=== PATIENT | female | born 1940 | race Caucasian/White ===

== ENCOUNTER 2016-06-12 18:26 | Inpatient (IN) ==
[2016-06-12] MEDS ORDERED: *HR* Dextrose 50 % in Water (Syg) 50 ML SYRINGE IVP PRN (20:51)
[2016-06-12] MEDS ORDERED: Naloxone 0.4 MG/ML INJ IVP PRN ×2 (20:51)
[2016-06-12] MEDS ORDERED: Insulin Regular, Human 100 UNIT/ML IV ONE (20:51)
[2016-06-12] MEDS ORDERED: Insulin Regular, Human 100 UNIT/ML IV PRN ×2 (20:51)
[2016-06-12] MEDS ORDERED: Ondansetron 4 MG/2 ML VIAL IVP PRN (21:01)
[2016-06-12] MEDS ORDERED: D5% in 0.45% NACL 1,000 ML IVC PRN (21:01)
[2016-06-12] MEDS ORDERED: Acetaminophen 325 MG TABLET PO PRN ×2 (21:01)
[2016-06-12] MEDS ORDERED: D5% in 0.45% NACL w KCl 20 MEQ/1,000 ML MLS IVC PRN (21:01)
[2016-06-12] MEDS ORDERED: *HR* OxyCODONE Immed Rel 5 MG TABLET PO PRN (21:01)
[2016-06-12] MEDS ORDERED: Pantoprazole 40 MG VIAL IVPB STA (21:01)
[2016-06-12] MEDS ORDERED: Acetaminophen 650 MG RECTAL SUPP RC PRN (21:01)
[2016-06-12] MEDS ORDERED: Insulin Human Regular 100 UNIT in 0.9 % Sodium Chloride 100 ML IVC SCH (21:15)
--- NOTE | 2016-06-12 21:48 | Internal Med History&Physical ---
Date of Encounter: 06/12/16 Time of Encounter: 21:00 Assessment and Plan (1) Toxic metabolic encephalopathy Current visit: Yes Status: Acute . (2) Delirium due to conditions classified elsewhere Current visit: Yes Status: Acute . (3) S/P percutaneous endoscopic gastrostomy (PEG) tube placement Current visit: Yes Status: Chronic . (4) Irritation around percutaneous endoscopic gastrostomy (PEG) tube site Current visit: Yes Status: Acute . (5) Candidal intertrigo Current visit: Yes Status: Acute . (6) Dementia arising in the senium and presenium Current visit: Yes Status: Chronic . (7) Systemic inflammatory response syndrome (SIRS) associated with organ dysfunction Current visit: Yes Status: Acute . (8) Sepsis Current visit: Yes Status: Acute . Qualifiers: Sepsis type: sepsis due to unspecified organism Qualified Code(s): A41.9 - Sepsis, unspecified organism (9) Accelerated hypertension Current visit: Yes Status: Acute . (10) Healthcare-associated pneumonia Current visit: Yes Status: Acute . (11) Acute on chronic respiratory failure with hypoxia and hypercapnia Current visit: Yes Status: Acute . (12) Hyperosmolar non-ketotic state in patient with type 2 diabetes mellitus Current visit: Yes Status: Acute . (13) Uncontrolled diabetes mellitus Current visit: Yes Status: Chronic . Qualifiers: Diabetes mellitus type: type 2 Diabetes mellitus complication status: with unspecified complications Diabetes mellitus continuous churn buttermaker insulin use: unspecified continuous churn buttermaker insulin use status Qualified Code(s): E11.8 - Type 2 diabetes mellitus with unspecified complications; E11.65 - Type 2 diabetes mellitus with hyperglycemia (14) Acute kidney injury superimposed on CKD Current visit: Yes Status: Acute . (15) Status post epidural steroid injection Current visit: Yes Status: Acute . (16) Demand ischemia of myocardium Current visit: Yes Status: Acute . (17) Ischemia due to increased oxygen demand Current visit: Yes Status: Acute . (18) Elevated troponin I measurement Current visit: Yes Status: Acute . (19) Non-ST elevation myocardial infarction (NSTEMI) due to mismatch of myocardial oxygen supply and demand Current visit: Yes Status: Acute . (20) Hypoalbuminemia due to protein-calorie malnutrition Current visit: Yes Status: Chronic . (21) CAD (coronary artery disease), [place] coronary artery Current visit: Yes Status: Chronic . Qualifiers: [place] vs. transplanted heart: [place] heart Associated angina: angina presence unspecified Qualified Code(s): I25.10 - Atherosclerotic heart disease of [place] coronary artery without angina pectoris (22) History of coronary artery bypass graft Current visit: Yes Status: Chronic . (23) History of CVA with residual deficit Current visit: Yes Status: Chronic . (24) Complete immobility due to severe physical disability or frailty Current visit: Yes Status: Chronic . (25) COPD (chronic obstructive pulmonary disease) Current visit: Yes Status: Chronic . Qualifiers: COPD type: unspecified COPD Qualified Code(s): J44.9 - Chronic obstructive pulmonary disease, unspecified (26) Hypertension Current visit: Yes Status: Chronic . Qualifiers: Hypertension type: essential hypertension Qualified Code(s): I10 - Essential (primary) hypertension (27) Dyslipidemia Current visit: Yes Status: Chronic . (28) Chronic pain associated with significant psychosocial dysfunction Current visit: Yes Status: Chronic . (29) Chronic back pain Current visit: Yes Status: Chronic . Qualifiers: Back pain location: low back pain Back pain laterality: unspecified Sciatica presence: unspecified whether sciatica present Qualified Code(s): M54.5 - Low back pain; G89.29 - Other chronic pain (30) Anxiety and depression Current visit: Yes Status: Chronic . (31) At risk for adverse drug event Current visit: Yes Status: Chronic . (32) At risk for activity intolerance Current visit: Yes Status: Chronic . (33) Bed confinement status Current visit: Yes Status: Chronic . (34) Macrocytic anemia Current visit: Yes Status: Chronic . (35) Pleural effusion Current visit: Yes Status: Chronic . (36) UTI (urinary tract infection) Current visit: Yes Status: Acute . Qualifiers: Urinary tract infection type: site unspecified Hematuria presence: without hematuria Qualified Code(s): N39.0 - Urinary tract infection, site not specified (37) CKD (chronic kidney disease) stage 3, GFR 30-59 ml/min Current visit: Yes Status: Chronic . (38) DM type 2 (diabetes mellitus, type 2) Current visit: Yes Status: Chronic .. Qualifiers: Diabetes mellitus complication status: with unspecified complications Diabetes mellitus continuous churn buttermaker insulin use: unspecified continuous churn buttermaker insulin use status Qualified Code(s): E11.8 - Type 2 diabetes mellitus with unspecified complications (39) Failed back surgical syndrome Current visit: Yes Status: Chronic . (40) Lumbar radicular syndrome Current visit: Yes Status: Chronic . (41) Age-related physical debility Current visit: Yes Status: Chronic . Internal Medicine - H&P: HPI Chief complaint: Altered mental status Admitted From: Emergency Dept Plans for Post Hospital Care: Transfer Shelter Facility History of present illness: Ms. 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 The patient was visited and interviewed and examined. Patient was found to be encephalopathic. Delirious. Inattentive. Acutely ill. Nonverbal/ non- historian of circumstances and events. The patient is admitted to [facility] as a hospital transfer from [facility] emergency department where she presented via EMS services for fpc reports of increased confusion associated with abdominal pain and pneumonia. Patient was reported to have had a high fever associated with mental status changes approximate 4 days prior to presentation. She was diagnosed in the fpc is having a pneumonia and initiated on antibiotics. However condition did not improve. Due to decreased responsiveness and increasing discomfort patient was transferred for further evaluation. Prior to her decline in alertness the patient was complaining of pain severity at a 10/10 progressively worsening associated with generalized weakness and fever.Findings in the ED: Temperature 101.7 pulse 117-121 respiration 20 BP 150-187/90-98 O2 saturation 92% on 2 L per nasal cannula. WBC 12.5 hemoglobin 10.4 platelets 346,000. MCV 105.2 MCHC 30. The differential showed increase in neutrophils. Arterial blood gas showed a pH of 7.46 PCO2 48 PO2 61 HCO3 34.8 O2 saturation 92%. Liters per nasal cannula. Lactic acid 1.3. PT 14.1 INR 1.3 PTT 28.1. Metabolic panel showed a sodium of 149 potassium 4.6 carbon dioxide 32 BUN 45, creatinine 1.52 GFR 33. Glucose 755 osmolality 356. Albumin 2.6 total protein 8. Troponin 0.15. BNP 2328. Beta hydroxybutyric acid greater than 0.27. Portable chest x-ray demonstrated moderate to large right pleural effusion. Extensive right lower lobe and right middle lobe consolidation and atelectasis. No pneumothorax. Left lung clear. Heart size normal. Sternotomy wires apparent. CT head without contrast demonstrated no evidence for obvious acute infarct or hemorrhage. Diffuse atrophy. Focal encephalomalacia seen in the posterior left frontal lobe. This is compatible with remote infarct. Periventricular hypodensities likely due to small vessel ischemic change. No evidence of mass or midline shift or extra- axial fluid collection. Paranasal sinuses and mastoid air cells benign except for trace fluid in the ethmoids and sphenoid on the right. No bone or soft tissue abnormality seen. CT of the chest without contrast demonstrated increased right-sided pleural effusion with increased lung collapse and consolidation on the right. Secretion seen in right lower lobe airways likely mucous plugging. Hazy groundglass opacities throughout the lung on the left likely post inflammatory or infectious. Surgical changes seen in the stomach with G-tube present. Spurring seen in the spine. Post-fusion changes noted in the cervical spine. All mediastinal nodes noted. Calcified granuloma seen within the liver. EKG demonstrated sinus tachycardia at 116 with no acute ischemic changes. Preliminary impression suggests acute on chronic hypoxic hypercapnic respiratory failure in the setting of healthcare associated pneumonia and expanding parapneumonic effusion with compressive atelectasis. Patient is acutely septic. SIRS criteria and sepsis criteria met at the time of admission. Hyperosmolar nonketotic hyperglycemia is evident with alteration in mental status/responsiveness/semi-coma. Osmolar state is significant with associated hypernatremia. Acute on chronic kidney injury stage III with evidence significant dehydration associated with presentation. Screening studies also demonstrated significant hypoalbuminemia pointing to underlying severe chronic protein caloric malnutrition. Demand ischemia with troponin elevation as well as elevation in BNP consistent with the degree of flash pulmonary edema but also noting underlying CMP and BAHRAT/CKD. The patient presents at increased risk for further acute clinical decline and morbidity given her advanced age, frailty, clinical findings and comorbidities in the setting of evolving multiorgan failure. Workup and treatment progress comprehensibly. Cumulative laboratory and radiographic data base was reviewed, considered and discussed. Pertinent ancillary medical records including ECW and PCI documentation, when available was reviewed and considered. Given the patient's presenting concerns, past medical history, clinical findings and symptoms, she is admitted at this time will undergo further evaluation and disposition. Orders were written as per the computerized physician security orderly system.......................................................................... .................... Consultative opinion and will be sought as clinical circumstances justify. Pain management needs will be addressed. Laboratory and radiographic data base will be updated as appropriate. Studies include: Cultures of blood and urine and sputum, CPK, cardiac injury panel, BNP , beta-hydroxybutyric acid, metabolic and hematologic panel, magnesium, phosphorus, ionized calcium, thyroid panel, lipid profile, A1c, C-peptide, CRP, sedimentation rate, respiratory infection profile, respiratory virus panel, blood gas, lactic acid, UA, PT, APTT, Ddimer, fibrinogen, amylase, lipase, b12, iron studies, folate, serologies, etc. Precautions: Aspiration, fall, seizure, delirium protocol/surveillance initiated. Telemetry with continuous hemodynamic monitoring and pulse oximetry initiated. Orthostatic vital signs. Empiric antibody coverage: Intravenous vancomycin, Zosyn and Levaquin pending culture data. Special studies: CT chest, CT head/brain, chest x-ray, telemetry, EKG, echocardiogram, ultrasound retroperitoneum, bladder scan, postvoid.. Pulmonary toilet: Incentive spirometry, aerosol bronchodilator, mucolytic, antitussive, supplemental oxygen. Corticosteroid therapy. CPAP/BiPAP supplemental oxygen delivery. Aerosol Mucomyst therapy. Fluid and electrolyte repletion efforts will proceed. Careful attention to fluid balance and renal recovery will be emphasized. Avoidance of nephrotoxic exposure and adverse drug drug interaction in the setting of impaired renal function will be monitored closely. Correction of metabolic and acid-base deficits will be emphasized. Acute coronary syndrome protocol/surveillance initiated. Acute CUT PLUG PACKER injury protocol/surveillance initiated. DVT and PUD prophylaxis initiated: PPI therapy, intermittent pneumatic cuffs. Subcutaneous heparin/Lovenox. Early ambulation will be encouraged. Immunization updates recommended. Influenza and pneumococcal vaccinations as part of ongoing preventative healthcare recommendations strongly recommended. Smoking cessation counseling will be briefly addressed when circumstances permit. Advanced care directive discussion to be addressed when circumstances permit. Patient hospital to hospital transfer records and [place] records reviewed. Healthcare restrictions noted at this time. Cardiovascular risk appraisal and cardiovascular risk reduction efforts will be emphasized. Physical and occupational therapy counseled to evaluate/assess patient's functional capacity and progress mobility when clinical circumstances permit. DKA/HHS protocols/surveillance initiated. Insulin drip therapy to transition into sliding scale/basal/nutritional insulin coverage when clinical circumstances permit. Patient is PEG tube dependent. Tube feeding assignment /ADA dietary restraint as per nutrition/dietary consultation recommendations. Scheduled and as-needed basis fingerstick glucose assessments were initiated. Nutrition/diabetes education/dietary consultation requested.. Outpatient medication schedules will be reviewed, confirmed and facilitated as appropriate. Reconciliation of home treatments including adjustments, substitutions and reintroduction into the treatment regimen will address necessary maintenance therapies for chronic pre-existing medical conditions. Plan of care has been reviewed and discussed in detail with the patient's. Questions addressed. Hospital course will be dependent upon collective clinical findings, treatment response and potential consultative interventions. Patient is at increased risk for further acute clinical decline and morbidity due to advanced age, frailty, presenting chief complaints, findings and comorbidities in the setting of evolving multiorgan derangements.. Condition is serious. Status is critical. Prognosis is guarded. CODE STATUS is DNR-comfort care arrest Past Med Surg Social Fam HX - Past Medical History Source: old records reviewed Medical history: arthritis, asthma, CHF, COPD, coronary artery disease, CVA, diabetes, GERD, hyperlipidemia, hypertension, osteoporosis, renal disease, seizures, thyroid disease, other Psychiatric history: anxiety, depression - Past Surgical History Surgical History: cholecystectomy, colectomy (Colonic resection.), coronary bypass (CABG), hysterectomy, orthopedic, other (Interbody fusion at L4-L5 posterior lumbar. Cervical spine disc colectomy. Lumbar disks activity.), RAHEEM/ BSO, other (Tubal ligation. Tonsillectomy adenoidectomy. Upper and lower teeth extractions.), pacemaker - Social History Smoking Status: Unknown if ever smoked Smokeless Tobacco Status: No Alcohol use: none Drug use: none Occupational status: disabled Current living situation: ECF Activity Level: Wheelchair bound, Bed bound Recent Out of Country Travel Within the Last 8 Weeks: No Exposure or Possible Exposure to Illness During Travel: No Internal Medicine - H&P: Meds Albuterol Sulfate [Ventolin Hfa] 1 puff IH Q6H 01/26/16 [History] Ergocalciferol (VITAMIN D2) [Vitamin D2] 50,000 unit PO QWEEK #0 01/26/16 [ History] Gabapentin 250 mg GTUBE BID 01/26/16 [History] Insulin Glargine,Hum.rec.anlog [Lantus Solostar] 10 unit SQ DAILY 01/26/16 [ History] Labetalol HCl 200 mg GTUBE BID 01/26/16 [History] Losartan Potassium [Cozaar] 50 mg GTUBE DAILY 01/26/16 [History] Nortriptyline HCl 10 mg GTUBE HS 01/26/16 [History] Ondansetron Oral Soln [Zofran Oral Soln] 4 mg GTUBE TID 01/26/16 [History] Polyethylene Glycol 3350 [MiraLAX] 17 gm GTUBE DAILY 01/26/16 [History] Potassium Chloride Elixir [Potassium Chloride] 10 meq GTUBE DAILY 01/26/16 [ History] Furosemide [Lasix] 20 mg PO Q48H 365 Days 01/29/16 [Rx] Albuterol Sulfate [Ventolin Hfa] 18 gm IH Q6H PRN 06/12/16 [History] Mv-Mn/FA/Coq10/Lycopene/Lutein [Theragran-M Premier 50+ Caplet] 5 ml GTUBE QAM 06/12/16 [History] Allergies No Known Allergies Allergy (Verified 05/21/16 23:37) ROS unobtainable: due to mental status All Systems PM: A 10-system review of systems was performed and is negative for pertinent findings except as documented above in the HPI. Patient presents acutely confused and assisted with the encephalopathy and associated delirium. Dysarthric. Inattentive. Unable to comply with requests. She is a non- historian of circumstances and events. Details are collected from cumulative records, EMS triage information and fpc. - Constitutional Constitutional: as per HPI - EENT Eyes: as per HPI Ears: as per HPI Nose, mouth and throat: as per HPI - Breasts Breasts: as per HPI - Cardiovascular Cardiovascular ROS IM: as per HPI - Respiratory Respiratory: as per HPI - Gastrointestinal Gastrointestinal: as per HPI - Genitourinary Genitourinary: as per HPI Menstruation: as per HPI - Musculoskeletal Musculoskeletal ROS IM: as per HPI - Integumentary Integumentary IM: as per HPI - Neurological Neurological ROS: as per HPI - Psychiatric Psychiatric: as per HPI - Endocrine Endocrine IM: as per HPI - Hematologic/Lymphatic Hematologic/Lymphatic: as per HPI - Allergic/Immunologic Allergic/Immunologic: as per HPI - Constitutional Vitals: Temp Pulse Resp BP Pulse Ox 99.9 F H 122 24 175/102 94 L 06/12/16 20:32 06/12/16 20:32 06/12/16 20:32 06/12/16 20:32 06/12/16 20:32 General appearance: Present: cachectic, A&O X 1, disheveled, severe distress, underweight. Absent: answers questions appropriately - Head Head exam: Present: atraumatic, normocephalic - Eye Eye exam: Present: EOMI, PERRL, conjuntiva pink, sclera anicteric Pupils: Present: normal accommodation, PERRL - ENT ENT exam: Present: mucous membranes dry, normal external ear exam, normal oropharynx - Neck Neck exam general surgery: Present: full ROM, supple, trachea midline. Absent: lymphadenopathy, tenderness, nuchal rigidity - Respiratory Respiratory exam: Present: chest wall tenderness, decreased breath sounds, CTAB. Absent: accessory muscle use, rales, rhonchi, stridor, wheezes - Cardiovascular Cardiovascular exam: Present: distant heart sounds, RRR, +S1, +S2, tachycardia. Absent: diastolic murmur, gallop, rubs, systolic murmur - GI/Abdominal GI/Abdominal exam: Present: diminished bowel sounds, soft, tenderness, no peritoneal signs. Absent: distended, guarding, rebound, rigid - Extremities Exam Extremities exam: Present: warm, radial pulses palpable and symetrical. Absent : calf tenderness, cyanotic, pedal edema - Neurological Exam Neurological exam: Present: alert, altered, CN II-XII intact, motor sensory deficit. Absent: strengths equal and symetr throughout, pronater drift, facial droop, speech deficit - Expanded Neurological Exam Neurological exam expanded: Present: ataxia, inattentive, protecting the airway. Absent: expressive aphasia, receptive aphasia Patient oriented to: Present: person. Absent: place, time Speech: Present: garbled Coma Scale Eye Opening: Spontaneous Coma Scale Motor Response: Withdraws to Pain Coma Scale Verbal Response: Incomprehensible Coma Scale Total: 10 - Psychiatric Psychiatric exam: Present: agitated, anxious - Expanded Psychiatric Exam Focused psych exam: Present: restlessness - Skin Skin exam: Present: dry, intact, rash, warm. Absent: petechiae, urticaria, vesicles Internal Med - H&P Results - Labs CBC & Chem 7: 06/15/16 00:57 06/15/16 00:57 - Impressions Vital Signs Temp Pulse Resp BP Pulse Ox 06/12/16 20:32 99.9 F H 122 24 175/102 94 L Intake and Output 06/12/16 06/12/16 06/12/16 07:59 15:59 23:59 Intake Total 0 / 0 Output Total 500 / 500 Balance -500 / -500 Intake: Oral 0 / 0 Output: Catheter 500 / 500 Other: Stool Size Smear Stool Color Yellow Weight 65.5 kg Blood Glucose* 589 Patient Weight 06/12/16 23:59 Weight 65.5 kg Allergies Allergy/AdvReac Type Severity Reaction Status Date / Time No Known Allergies Allergy Verified 05/21/16 23:37 Abnormal lab results RBC 2.43 M/mcL (3.82-4.97) L 06/15/16 00:57 Hgb 7.5 g/dL (11.5-15.4) L 06/15/16 00:57 Hct 25.8 % (35.3-44.9) L 06/15/16 00:57 MCV 106.2 fL (83.0-100.0) H 06/15/16 00:57 MCHC 29.1 g/dL (31.6-35.5) L 06/15/16 00:57 VBG pH 7.44 pH Units (7.32-7.42) H 06/13/16 09:22 VBG pO2 175 mmHg (25-40) H 06/13/16 09:22 VBG HCO3 34.6 mEq/L (21-27) H 06/13/16 09:22 BUN 28 mg/dL (7-20) H D 06/15/16 00:57 Est GFR (Non-Af Amer) 55 (> 60) L 06/15/16 00:57 BUN/Creatinine Ratio 29 (6-26) H 06/15/16 00:57 Glucose 314 mg/dL (70-99) H 06/15/16 00:57 POC Glucose 316 (58-89) H 06/15/16 00:41 Hemoglobin A1c 7.8 % (-5.6) H 06/12/16 22:34 Serum Osmolality 335 mOsm/kg (280-300) H 06/13/16 04:00 Calculated Osmolality 317 (280-300) H 06/15/16 00:57 Calcium 8.2 mg/dL (8.6-10.8) L 06/15/16 00:57 Iron 28 mcg/dL (50-170) L 06/15/16 00:57 Transferrin 98 mg/dL (180-382) L 06/15/16 00:57 Ferritin 294 ng/ml (5-204) H 06/15/16 00:57 Lactate Dehydrogenase 144 Units/L (159-327) L 06/14/16 14:36 Troponin I 0.29 ng/mL (0-0.03) H* 06/14/16 14:36 B-Natriuretic Peptide 2579 pg/mL (0-100) H 06/13/16 04:00 Albumin 2.4 g/dL (3.5-5.0) L 06/12/16 22:34 Globulin 5.2 g/dL (2.4-3.5) H 06/12/16 22:34 Albumin/Globulin Ratio 0.5 (1.1-2.2) L 06/12/16 22:34 HDL Cholesterol 21 mg/dL (40-59) L 06/13/16 04:00 Vitamin B12 1232 pg/mL (213-816) H 06/15/16 00:57 Urine Clarity Turbid (Clear) A 06/13/16 00:50 Urine Protein >=300 mg/dL (Neg-Trace) H 06/13/16 00:50 Urine Glucose (UA) 250 mg/dL (Normal) H 06/13/16 00:50 Urine Ketones Trace mg/dL (Negative) H 06/13/16 00:50 Urine Blood Large (Negative) H 06/13/16 00:50 Urine Bilirubin Small (Negative) H 06/13/16 00:50 Ur Leukocyte Esterase Small (Negative) H 06/13/16 00:50 Urine Microscopic RBC TNTC per hpf (0-3) H 06/13/16 00:50 Urine Microscopic WBC 15-30 per hpf (0-3) H 06/13/16 00:50 Ur Squamous Epith Cells Many per lpf (None-Few) H 06/13/16 00:50 Pleural Appearance Bloody (Clear) A 06/14/16 14:55 Pleural RBC 0.025 M/mcL (0.000-0.002) H 06/14/16 14:55 Laboratory Results WBC 5.2 K/mcL (4.3-11.1) 06/15/16 00:57 RBC 2.43 M/mcL (3.82-4.97) L 06/15/16 00:57 Hgb 7.5 g/dL (11.5-15.4) L 06/15/16 00:57 Hct 25.8 % (35.3-44.9) L 06/15/16 00:57 MCV 106.2 fL (83.0-100.0) H 06/15/16 00:57 MCH 30.9 pg (28.0-33.3) 06/15/16 00:57 MCHC 29.1 g/dL (31.6-35.5) L 06/15/16 00:57 RDW 13.0 % (11.5-14.5) 06/15/16 00:57 Plt Count 208 K/mcL (140-400) 06/15/16 00:57 MPV 10.2 fL (9.4-12.4) 06/15/16 00:57 Immature Gran % 0.8 % (0-4) 06/15/16 00:57 Seg Neutrophils % 75.8 % 06/15/16 00:57 Lymphocytes % 18.0 % 06/15/16 00:57 Monocytes % 2.7 % 06/15/16 00:57 Eosinophils % 2.5 % 06/15/16 00:57 Basophils % 0.2 % 06/15/16 00:57 Neutrophils # 4.0 K/mcL (1.6-8.9) 06/15/16 00:57 Lymphocytes # 0.9 K/mcL (0.6-4.6) 06/15/16 00:57 Monocytes # 0.1 K/mcL (0.0-1.3) 06/15/16 00:57 Eosinophils # 0.1 K/mcL (0.0-0.6) 06/15/16 00:57 Basophils # 0.0 K/mcL (0.0-0.2) 06/15/16 00:57 VBG pH 7.44 pH Units (7.32-7.42) H 06/13/16 09:22 VBG pCO2 51 mmHg (41-51) 06/13/16 09:22 VBG pO2 175 mmHg (25-40) H 06/13/16 09:22 VBG HCO3 34.6 mEq/L (21-27) H 06/13/16 09:22 Sodium 145 mEq/L (136-145) 06/15/16 00:57 Potassium 4.1 mEq/L (3.5-4.5) 06/15/16 00:57 Chloride 107 mEq/L (98-109) 06/15/16 00:57 Carbon Dioxide 29 mEq/L (19-29) 06/15/16 00:57 BUN 28 mg/dL (7-20) H D 06/15/16 00:57 Creatinine 0.98 mg/dL (0.57-1.11) 06/15/16 00:57 Est GFR ( Amer) > 60 (> 60) 06/15/16 00:57 Est GFR (Non-Af Amer) 55 (> 60) L 06/15/16 00:57 BUN/Creatinine Ratio 29 (6-26) H 06/15/16 00:57 Glucose 314 mg/dL (70-99) H 06/15/16 00:57 POC Glucose 316 (58-89) H 06/15/16 00:41 Est Mean Plasma Glucose 177 mg/dl 06/12/16 22:34 Hemoglobin A1c 7.8 % (-5.6) H 06/12/16 22:34 Serum Osmolality 335 mOsm/kg (280-300) H 06/13/16 04:00 Calculated Osmolality 317 (280-300) H 06/15/16 00:57 Lactic Acid 1.6 mmol/L (0.5-2.2) 06/14/16 14:36 Calcium 8.2 mg/dL (8.6-10.8) L 06/15/16 00:57 Phosphorus 2.9 mg/dL (2.3-4.7) 06/13/16 19:16 Magnesium 2.1 mg/dL (1.6-2.6) 06/13/16 19:16 Iron 28 mcg/dL (50-170) L 06/15/16 00:57 % Saturation 20 % (15-50) 06/15/16 00:57 Transferrin 98 mg/dL (180-382) L 06/15/16 00:57 Ferritin 294 ng/ml (5-204) H 06/15/16 00:57 Total Bilirubin 0.6 mg/dL (0.2-1.2) 06/12/16 22:34 AST 14 Units/L (5-34) 06/12/16 22:34 ALT 8 Units/L (0-55) 06/12/16 22:34 Alkaline Phosphatase 93 Units/L (38-126) 06/12/16 22:34 Lactate Dehydrogenase 144 Units/L (159-327) L 06/14/16 14:36 Troponin I 0.29 ng/mL (0-0.03) H* 06/14/16 14:36 B-Natriuretic Peptide 2579 pg/mL (0-100) H 06/13/16 04:00 Serum Total Protein 7.6 g/dL (6.0-8.3) 06/12/16 22:34 Albumin 2.4 g/dL (3.5-5.0) L 06/12/16 22:34 Globulin 5.2 g/dL (2.4-3.5) H 06/12/16 22:34 Albumin/Globulin Ratio 0.5 (1.1-2.2) L 06/12/16 22:34 Triglycerides 73 mg/dL (< 150) 06/13/16 04:00 Cholesterol 73 mg/dL (< 200) 06/13/16 04:00 LDL Cholesterol, Calc 37 mg/dL (0-99) 06/13/16 04:00 VLDL Cholesterol, Calc 15 mg/dL (< 31) 06/13/16 04:00 HDL Cholesterol 21 mg/dL (40-59) L 06/13/16 04:00 Cholesterol/HDL Ratio 3.5 (0-4.9) 06/13/16 04:00 Vitamin B12 1232 pg/mL (213-816) H 06/15/16 00:57 Folate 16.4 ng/mL (7.0-31.4) 06/15/16 00:57 Urine Color Yellow (Yellow) 06/13/16 00:50 Urine Clarity Turbid (Clear) A 06/13/16 00:50 Urine pH 6.0 pH Units (5.0-8.0) 06/13/16 00:50 Ur Specific [place] 1.025 (1.010-1.025) 06/13/16 00:50 Urine Protein >=300 mg/dL (Neg-Trace) H 06/13/16 00:50 Urine Glucose (UA) 250 mg/dL (Normal) H 06/13/16 00:50 Urine Ketones Trace mg/dL (Negative) H 06/13/16 00:50 Urine Blood Large (Negative) H 06/13/16 00:50 Urine Nitrite Negative (Negative) 06/13/16 00:50 Urine Bilirubin Small (Negative) H 06/13/16 00:50 Urine Urobilinogen Normal mg/dL (Normal) 06/13/16 00:50 Ur Leukocyte Esterase Small (Negative) H 06/13/16 00:50 Urine Microscopic RBC TNTC per hpf (0-3) H 06/13/16 00:50 Urine Microscopic WBC 15-30 per hpf (0-3) H 06/13/16 00:50 Ur Squamous Epith Cells Many per lpf (None-Few) H 06/13/16 00:50 Urine Bacteria Few per hpf (None-Few) 06/13/16 00:50 Hyaline Casts Test Not Performed 06/13/16 00:50 Urine Yeast Test Not Performed 06/13/16 00:50 Pleural Fluid Volume 1200.0 mL 06/14/16 14:55 Pleural Appearance Bloody (Clear) A 06/14/16 14:55 Pleural pH 7.48 pH Units (No Ref Range) 06/14/16 14:55 Pleural RBC 0.025 M/mcL (0.000-0.002) H 06/14/16 14:55 Pleural Tot Nuc Cell 331 TNC/mcL (0-1000) 06/14/16 14:55 Pleural Neutrophils 8.0 % 06/14/16 14:55 Pleural Band Neuts Test Not Performed 06/14/16 14:55 Pleural Eosinophils Test Not Performed 06/14/16 14:55 Pleural Basophils Test Not Performed 06/14/16 14:55 Pleural Lymphocytes % 92.0 % 06/14/16 14:55 Pleural Monocytes % Test Not Performed 06/14/16 14:55 Pleural Other Cells % Test Not Performed 06/14/16 14:55 Pleural Total Protein 4.1 g/dL (No Ref Range) 06/14/16 14:55 Pleural LDH 156 Units/L (No Ref Range) 06/14/16 14:55 Pleural Amylase 14 Units/L (No Ref Range) 06/14/16 14:55 Vancomycin Trough 12.0 mcg/mL (10-20) 06/15/16 00:57 Impressions Thoracentesis Ultrasound 06/14/16 00:00 IMPRESSION: Successful ultrasound guided thoracentesis. D/ / Darian Wood MD / Darian Wood MD Interpreting Provider: Darian Wood MD Chest X-Ray 06/14/16 14:54 IMPRESSION: Decreased size of right pleural effusion following thoracentesis, without pneumothorax. D/ / Shan Gallardo MD / Shan Gallardo MD Interpreting Provider: Shan Gallardo MD
[2016-06-12] MEDS ORDERED: Insulin LISPRO 300 UNITS/3 ML VIAL SQ PRN (22:11)
[2016-06-12] MEDS: Insulin Human Regular 100 UNIT in 0.9 % Sodium Chloride 100 ML IVC SCH (22:27)
[2016-06-12] MEDS: 0.45 % Sodium Chloride w/KCl 20 MEQ/1,000 ML MLS IVC SCH (22:27)
[2016-06-12] MEDS: *HR* Morphine 2 MG/ML SYRINGE IVP PRN (22:28)
[2016-06-12] MEDS ORDERED: Albuterol 2.5 MG/3 ML NEBULIZER IH PRN (22:28)
[2016-06-12 22:48] LABS: Basophils % 0.1 %; Hematocrit 36.4 % (35.3-44.9); Hemoglobin 10.6 g/dL (11.5-15.4); Immature Granulocytes % 0.8 % (0-4); Lymphocytes # 0.4 K/mcL (0.6-4.6); Lymphocytes % 2.8 %; Mean Corpuscular HGB Conc 29.1 g/dL (31.6-35.5); Mean Corpuscular Hemoglobin 30.5 pg (28.0-33.3); Mean Corpuscular Volume 104.9 fL (83.0-100.0); Monocytes # 0.1 K/mcL (0.0-1.3); Monocytes % 0.5 %; Neutrophils # 12.8 K/mcL (1.6-8.9); Platelet Count 353 K/mcL (140-400); Red Blood Count 3.47 M/mcL (3.82-4.97); Red Cell Distribution Width 13.2 % (11.5-14.5); Segmented Neutrophils % 95.8 %
[2016-06-12] MEDS ORDERED: Vancomycin 1,000 MG in D5% in Water 250 ML IVPB SCH (23:00)
[2016-06-12] MEDS ORDERED: Levofloxacin 500 MG/100 ML 500 MG/100 ML BAG IVPB SCH (23:00)
[2016-06-12 23:06] LABS: Albumin 2.4 g/dL (3.5-5.0); Albumin/Globulin Ratio 0.5 (1.1-2.2); Bilirubin,Total 0.6 mg/dL (0.2-1.2); Calcium 9.5 mg/dL (8.6-10.8); Globulin 5.2 g/dL (2.4-3.5); Magnesium 2.2 mg/dL (1.6-2.6); Phosphorous 2.4 mg/dL (2.3-4.7); Total Protein 7.6 g/dL (6.0-8.3)
[2016-06-12] MEDS ORDERED: *HR* Metoprolol 5 MG/5 ML VIAL IVP PRN (23:15)
[2016-06-12] MEDS ORDERED: Haloperidol Lactate 5 MG/ML VIAL IVP PRN (23:15)
[2016-06-12] MEDS ORDERED: *HR* LORazepam 2 MG/ML VIAL IVP PRN (23:15)
[2016-06-12] MEDS ORDERED: *HR* Metoprolol 5 MG/5 ML VIAL IVP ONE (23:29)
[2016-06-12] MEDS ORDERED: Vancomycin 1,250 MG in D5% in Water 250 ML IVPB ONE (23:30)
[2016-06-12] MEDS: Nystatin POWDER 30 GM BOTTLE TP SCH (23:37)
[2016-06-13] MEDS: 0.45 % Sodium Chloride w/KCl 20 MEQ/1,000 ML MLS IVC SCH ×3 (00:36→05:00)
[2016-06-13] MEDS: Piperacillin/Tazobactam 3.375 GM in D5% in Water (Mini-Bag+) 100 ML IVPB SCH ×3 (00:37→19:50)
[2016-06-13] MEDS: Ipratropium/Albuterol Neb 3 ML IH SCH ×5 (00:40→23:40)
[2016-06-13] MEDS: Levofloxacin 500 MG/100 ML 500 MG/100 ML BAG IVPB SCH (00:52)
[2016-06-13 00:54] LABS: Hemoglobin A1C 7.8 %
[2016-06-13 01:09] LABS: Bilirubin,Urine Small (Negative); Blood,Urine Large (Negative); Clarity,Urine Turbid (Clear); Color,Urine Yellow (Yellow); Glucose,Urine (UA) 250 mg/dL (Normal); Ketones,Urine Trace mg/dL (Negative); Leukocyte Esterase,Urine Small (Negative); Nitrite,Urine Negative (Negative); Protein,Urine >=300 mg/dL (Neg-Trace); Specific Gravity,Urine 1.025 (1.010-1.025); Urobilinogen,Urine Normal (Normal)
[2016-06-13 01:12] LABS: Squamous Epithelial Cell,Urine Many per lpf (None-Few); WBC,Urine 15-30 per hpf (0-3)
[2016-06-13 01:14] LABS: VBG HCO3 38.1 mEq/L (21-27); VBG PH 7.39 pH Units (7.32-7.42)
[2016-06-13 01:23] LABS: Bacteria,Urine Few per hpf (None-Few); RBC,Urine TNTC per hpf (0-3)
[2016-06-13 04:36] LABS: Calcium 8.9 mg/dL (8.6-10.8); Magnesium 2.2 mg/dL (1.6-2.6); Phosphorous 1.5 mg/dL (2.3-4.7); Potassium 3.3 mEq/L (3.5-4.5)
[2016-06-13 04:37] LABS: Chol/HDL Ratio 3.5 (0-4.9)
[2016-06-13] MEDS: *HR* Heparin 5,000 UNIT/ML VIAL SQ SCH ×2 (04:50→17:05)
[2016-06-13 04:53] LABS: VBG HCO3 40.3 mEq/L (21-27); VBG PH 7.4 pH Units (7.32-7.42)
[2016-06-13] MEDS: Insulin Human Regular 100 UNIT in 0.9 % Sodium Chloride 100 ML IVC SCH (04:59)
[2016-06-13] MEDS ORDERED: Insulin DETEMIR 100 UNIT/ML X5UNITS SQ ONE (06:06)
[2016-06-13] MEDS ORDERED: 0.45 % Sodium Chloride w/KCl 20 MEQ/1,000 ML MLS IVC SCH (06:15)
[2016-06-13] MEDS: Fluconazole 200 MG/100 ML 200 MG/100 ML BAG IVPB SCH (07:37)
[2016-06-13] MEDS: traMADol 50 MG TABLET GTUBE SCH ×2 (07:37→19:52)
[2016-06-13] MEDS: Pantoprazole 40 MG VIAL IVP SCH (07:37)
[2016-06-13] MEDS: Vitamin B Complex/Vit C/Vit E 1 EACH TABLET PO SCH (07:37)
[2016-06-13] MEDS: Folic Acid 1 MG TABLET PO SCH (07:38)
[2016-06-13] MEDS: tiZANidine 4 MG TABLET GTUBE SCH ×2 (07:38→19:52)
[2016-06-13] MEDS: Thiamine (B-1) 100 MG TABLET PO SCH (07:38)
[2016-06-13] MEDS: Nystatin SUSP 5 ML UD.LIQ PO SCH ×4 (07:38→19:51)
[2016-06-13] MEDS: Gabapentin 300 MG CAPSULE GTUBE SCH ×2 (07:39→19:51)
[2016-06-13] MEDS: Nystatin POWDER 30 GM BOTTLE TP SCH ×3 (07:40→19:51)
[2016-06-13] MEDS: Insulin LISPRO 300 UNITS/3 ML VIAL SQ SCH ×4 (07:41→19:50)
[2016-06-13 09:38] LABS: VBG HCO3 34.6 mEq/L (21-27); VBG PH 7.44 pH Units (7.32-7.42)
[2016-06-13 09:42] LABS: Calcium 8.6 mg/dL (8.6-10.8); Magnesium 1.9 mg/dL (1.6-2.6); Phosphorous 2.2 mg/dL (2.3-4.7); Potassium 4.2 mEq/L (3.5-4.5)
--- NOTE | 2016-06-13 12:55 | Event Note ---
Date of Encounter: 06/13/16 Time of Encounter: 10:45 Patient is currently lying in bed. Difficult to awake. Appears to be comfortable. No acute events reported today. Has been taken off DKA protocol as her blood sugars have improved. Vital Signs Vital Signs Assessment Start: 06/12/16 19:55 Freq: Q1H Status: Active Activity Type Activity Date Activity User E-Sign Co-Sign Detail Recorded Client Recorded Date Recorded By Created 06/12/16 19:55 SAG [id number] 06/12/16 19:55 SAG Vital Signs Assessment Start: 06/12/16 20:51 Freq: PROTOCOL Status: Complete Activity Type Activity Date Activity User E-Sign Co-Sign Detail Recorded Client Recorded Date Recorded By Created 06/12/16 21:24 [id number] 06/12/16 21:24 BKG DAEMON Vital Signs Assessment Start: 06/12/16 21:01 Freq: Q4H Status: Active Activity Type Activity Date Activity User E-Sign Co-Sign Detail Recorded Client Recorded Date Recorded By Created 06/12/16 21:25 [id number] 06/12/16 21:25 BKG DAEMON Temp Pulse Resp BP Pulse Ox 06/13/16 11:36 99.4 F 85 21 138/62 93 L 06/13/16 10:53 16 148/76 94 L 06/13/16 08:14 101 94 L 06/13/16 07:36 98.2 F 102 24 148/76 95 06/13/16 03:56 25 108/58 96 06/13/16 01:26 125 06/13/16 01:12 95 06/13/16 00:57 26 94/71 95 06/13/16 00:44 100.0 F H 125 20 94/71 95 06/12/16 20:32 99.9 F H 122 24 175/102 94 L General appearance: cachectic, disheveled, mild distress. Currently somnolent and difficult to awake. Not answering questions at this time. - Head Head exam: atraumatic, normocephalic - Respiratory Respiratory exam: Decreased breath sounds in the right lung and in the left base. Basal crackles present. - Cardiovascular Cardiovascular exam: distant heart sounds, RRR, +S1, +S2, no audible murmurs or rubs. - GI/Abdominal GI/Abdominal exam: Soft nontender normal bowel sounds present. - Extremities Exam Extremities exam: No pedal edema. Unable to assess range of motion at this time. - Neurological Exam Neurological exam: Patient is currently somnolent. Not answering questions. Unable to perform neurologic exam at this time. Assessment and plan: Hypoglycemia with hyperosmolar nonketotic state: Resolving. Patient now on subcutaneous insulin. We will continue to monitor blood sugars. Healthcare associated pneumonia and large right-sided pleural effusion: Unspecified organism. Continue broad-spectrum antibiotics. We will consult IR for right-sided thoracentesis tomorrow. Acute encephalopathy: Due to pneumonia and hyperglycemia state. Monitor neurologic function closely. Elevated troponins: Most likely due to respiratory issues and demand ischemia. Trending downwards. We will get 2-D echocardiogram. If significantly abnormal , will consult cardiology. Will start low-dose aspirin, check lipid profile. Hypertension: Well controlled. COPD: Not in acute exacerbation. We will use when necessary. DVT prophylaxis with subcutaneous heparin. Prognosis: Poor Risk of complications: High CODE STATUS: DNR CC arrest
[2016-06-13] MEDS: *HR* Morphine 2 MG/ML SYRINGE IVP PRN (13:48)
[2016-06-13] MEDS: Artificial Tears SOLN 15 ML BOTTLE BOTH EYES SCH ×2 (13:58→20:24)
[2016-06-13 19:38] LABS: Phosphorous 2.9 mg/dL (2.3-4.7)
[2016-06-13 19:39] LABS: Magnesium 2.1 mg/dL (1.6-2.6)
[2016-06-13] MEDS: traZODone 50 MG TABLET GTUBE SCH (19:52)
--- NOTE | 2016-06-13 20:07 | Electrocardiograph Report ---
[facility] Test Date: 2016-06-13 Pat Name: LUIS ANGEL MEDINA Department: 110 Room: 2N15 Gender: F Technical Project Lead: DIANDRA : 1940 Requested By: Chelsea Lewis Order Number: [id number] Reading MD: Sheng Lazaro DO Measurements Intervals [place] Rate: 107 P: -30 HI: 125 QRS: -15 QRSD: 73 T: -25 QT: 373 QTc: 436 Interpretive Statements SINUS TACHYCARDIA NONSPECIFIC ST \T\ T-WAVE ABNORMALITY Electronically Signed On 06-13-16 20:06:42 EST by Sheng Lazaro DO
[2016-06-13] MEDS ORDERED: Metoclopramide 10 MG/2 ML VIAL IVP ONE (21:11)
[2016-06-14] MEDS: Insulin LISPRO 300 UNITS/3 ML VIAL SQ SCH ×6 (00:30→23:26)
[2016-06-14] MEDS ORDERED: Vancomycin 1,500 MG in D5% in Water 250 ML IVPB ONE (03:00)
[2016-06-14] MEDS: Ipratropium/Albuterol Neb 3 ML IH SCH ×4 (03:59→23:36)
[2016-06-14] MEDS: Piperacillin/Tazobactam 3.375 GM in D5% in Water (Mini-Bag+) 100 ML IVPB SCH ×3 (04:10→23:27)
[2016-06-14 05:32] LABS: Calcium 8.2 mg/dL (8.6-10.8); Potassium 4.1 mEq/L (3.5-4.5)
[2016-06-14 05:51] LABS: Basophils % 0.2 %; Eosinophils # 0.1 K/mcL (0.0-0.6); Eosinophils % 0.9 %; Hemoglobin 7.7 g/dL (11.5-15.4); Lymphocytes # 1.6 K/mcL (0.6-4.6); Lymphocytes % 16.2 %; Mean Corpuscular HGB Conc 29.6 g/dL (31.6-35.5); Mean Corpuscular Volume 104.8 fL (83.0-100.0); Mean Platelet Volume 10.3 fL (9.4-12.4); Monocytes # 0.3 K/mcL (0.0-1.3); Monocytes % 3.4 %; Neutrophils # 7.8 K/mcL (1.6-8.9); Platelet Count 211 K/mcL (140-400); Red Blood Count 2.48 M/mcL (3.82-4.97); Red Cell Distribution Width 13.2 % (11.5-14.5); Segmented Neutrophils % 78.3 %
[2016-06-14] MEDS: *HR* Heparin 5,000 UNIT/ML VIAL SQ SCH ×2 (05:51→18:21)
[2016-06-14] MEDS: Pantoprazole 40 MG VIAL IVP SCH (08:16)
[2016-06-14] MEDS: traMADol 50 MG TABLET GTUBE SCH ×2 (08:17→23:28)
[2016-06-14] MEDS: Nystatin SUSP 5 ML UD.LIQ PO SCH ×4 (08:17→23:29)
[2016-06-14] MEDS: Thiamine (B-1) 100 MG TABLET PO SCH (08:17)
[2016-06-14] MEDS: Gabapentin 300 MG CAPSULE GTUBE SCH ×2 (08:17→23:28)
[2016-06-14] MEDS: Folic Acid 1 MG TABLET PO SCH (08:17)
[2016-06-14] MEDS: Vitamin B Complex/Vit C/Vit E 1 EACH TABLET PO SCH (08:17)
[2016-06-14] MEDS: tiZANidine 4 MG TABLET GTUBE SCH ×2 (08:18→23:29)
[2016-06-14] MEDS: Nystatin POWDER 30 GM BOTTLE TP SCH ×3 (08:18→23:29)
[2016-06-14] MEDS: Artificial Tears SOLN 15 ML BOTTLE BOTH EYES SCH ×2 (08:19→23:28)
[2016-06-14] MEDS: Fluconazole 200 MG/100 ML 200 MG/100 ML BAG IVPB SCH (08:19)
[2016-06-14] MEDS ORDERED: Bisacodyl 10 MG RECTAL SUPPOSITORY RC PRN (09:12)
[2016-06-14] MEDS: Insulin DETEMIR 100 UNIT/ML X5UNITS SQ SCH ×2 (10:29→23:30)
--- NOTE | 2016-06-14 11:46 | Internal Med Progress Note ---
Date of Encounter: 06/14/16 Time of Encounter: 09:10 - Assessment and plan (1) Healthcare-associated pneumonia Current Visit: Yes Status: Acute Assessment and plan: Cultures so far have been negative. We will continue broad-spectrum antibiotics for now. Leukocytosis has resolved. High risk for complications (2) Acute encephalopathy Current Visit: Yes Status: Acute Assessment and plan: Improving. Likely related to delirium and acute infection. Continue to monitor closely. (3) Elevated troponin Current Visit: Yes Status: Acute Assessment and plan: Will consult cardiology. Troponins peaked at 1.29. 2-D echocardiogram ordered. Likely due to demand ischemia and respiratory distress. (4) Hyperosmolar non-ketotic state in patient with type 2 diabetes mellitus Current Visit: Yes Status: Resolved Assessment and plan: This has now resolved. Patient on subcutaneous insulin and diabetic diet. Blood sugars improved but still elevated. Will increase insulin coverage. (5) COPD (chronic obstructive pulmonary disease) Current Visit: Yes Status: Chronic Assessment and plan: Chronic COPD. Continue bronchodilator nebs. Qualifiers: COPD type: unspecified COPD Qualified Code(s): J44.9 - Chronic obstructive pulmonary disease, unspecified (6) Hypertension Current Visit: Yes Status: Chronic Assessment and plan: Blood pressure is well controlled. Qualifiers: Hypertension type: essential hypertension Qualified Code(s): I10 - Essential (primary) hypertension (7) Anemia Current Visit: Yes Status: Acute Assessment and plan: Acute unspecified anemia. Hemoglobin 7.7. Macrocytic. Will check folic acid, vitamin B12 and iron levels. Check stool for occult blood. Qualifiers: Anemia type: unspecified type Qualified Code(s): D64.9 - Anemia, unspecified (8) Pleural effusion Current Visit: Yes Status: Acute Assessment and plan: Large right-sided pleural effusion. Awaiting thoracentesis under IR guidance today. (9) Abdominal pain Current Visit: Yes Status: Acute Assessment and plan: Upper abdominal pain. Nonspecific. Could be related to her PEG tube feeding. If persists after thoracentesis, will get CT scan of the abdomen and pelvis. Qualifiers: Abdominal location: upper abdomen, unspecified Qualified Code(s): R10.10 - Upper abdominal pain, unspecified (10) DVT prophylaxis Current Visit: Yes Status: Acute Assessment and plan: With subcutaneous heparin (11) Chronic respiratory failure with hypoxia Current Visit: Yes Status: Chronic Assessment and plan: Continue O2 supplementation via nasal cannula - Subjective Interval history: Patient is awake and alert. Answers questions well. Complains of abdominal pain. No nausea or vomiting. Continues to have difficulty breathing but this is improved from admission. Denies any chest pain at this time. - Constitutional Vitals: Temp Pulse Resp BP Pulse Ox 99.3 F 88 14 120/64 97 06/14/16 10:28 06/14/16 10:28 06/14/16 10:50 06/14/16 10:28 06/14/16 10:50 General appearance: Present: cachectic, cooperative, A&O X 1, disheveled, severe distress, underweight, answers questions appropriately - Respiratory Respiratory exam: Present: decreased breath sounds (In right lung and at left base). Absent: accessory muscle use, rales, rhonchi, wheezes - Cardiovascular Cardiovascular exam: Present: RRR, +S1, +S2. Absent: diastolic murmur, gallop, rubs, systolic murmur - GI/Abdominal GI/Abdominal exam: Present: normal bowel sounds, soft, no peritoneal signs. Absent: distended, tenderness - Extremities Exam Extremities exam: Present: warm, radial pulses palpable and symetrical. Absent : calf tenderness, cyanotic, pedal edema - Neurological Exam Neurological exam: Present: alert, no focal deficits. Absent: facial droop, speech deficit - Psychiatric Psychiatric exam: Present: normal affect - Skin Skin exam: Present: dry, intact Internal Medicine: Result - Labs CBC & Chem 7: 06/14/16 05:44 06/14/16 04:59 Labs: Short CBC 06/14/16 Range/Units 05:44 WBC 9.9 (4.3-11.1) K/mcL Hgb 7.7 L D (11.5-15.4) g/dL Hct 26.0 L (35.3-44.9) % Plt Count 211 (140-400) K/mcL Neutrophils # 7.8 (1.6-8.9) K/mcL BMP 06/14/16 04:59 Sodium 146 H Potassium 4.1 Chloride 108 Carbon Dioxide 29 BUN 41 H Creatinine 1.16 H Glucose 229 H Calcium 8.2 L - VTE Documentation of Mechanical Device: Graduated compression elastic hosiery Consult Discharge Plan - Plan Referrals: Karina Abrams, SOLOIST DANCER [Primary Care Provider] - - Attending Attestation This document has been at least partially created by [employer] recognition technology by Dr. Lewis. Errors in grammar, wording or other phrases may exist. If errors are found after the documentation is signed, they will be addressed individually in the addendum section of this document when appropriate.
--- NOTE | 2016-06-14 13:33 | Cardiology Consult Note ---
Date of Encounter: 06/14/16 Time of Encounter: 13:00 Assessment and Plan (1) Elevated troponin Current Visit: Yes Status: Acute Peak troponin 1.29 with downward trend in the setting of acute anemia, accelerated HTN, and PNA; likely secondary to demand ischemia. No ischemic ECG changes. Pain free upon exam. Recommend conservative medical management, continue betablocker. Will add statin. Ideally, start asa however will hold given anemia. Last TTE shows preserved LV function, EF 55% with normal wall motion. Echocardiogram pending. (2) Pneumonia Current Visit: Yes Status: Acute PNA per outpatient CXR--right lobe. Defer mgmt per primary service. Qualifiers: Pneumonia type: due to unspecified organism Laterality: right Lung location: unspecified part of lung Qualified Code(s): J18.9 - Pneumonia, unspecified organism (3) Accelerated hypertension Current Visit: Yes Status: Chronic Controlled as inpt. Continue betablocker and ARB. Discussion w patient/family: The assessment and plan as outlined above was discussed with the patient and/or family members who expressed understanding and agreement. All questions were answered. Thank you for involving us in the care of your patient. Please call with any questions. The patient will be discussed and reviewed with Dr. Delgadillo; changes to be made accordingly. History of Present Illness Consult date: 06/14/16 Requesting physician: Chelsea Lewis Consult reason: Elevated troponin Chief complaint: AMS, GI pain History of present illness: Ms. Mcgraw is a 75 year old female with PMH significant for CAD s/p CABG, CKD, HLD, HTN, CHF, CVA, COPD, chronic back pain s/p pain pump who was taken to [facility] [facility] from SNF due to increase in "GI pain and AMS." Patient is primarily bedridden and resides at SNF. She was also found to have a worsening right lung consolidation and effusion per outpatient CXR. Cardiology consulted today for elevated troponin. Past Med Surg Social Fam HX - Past Medical History Medical history: arthritis, asthma, CHF (type/chronicity unclear), COPD, coronary artery disease, CVA, diabetes, GERD, hyperlipidemia, hypertension, osteoporosis, renal disease, seizures, thyroid disease Psychiatric history: anxiety, depression - Past Surgical History Surgical History: cholecystectomy, coronary bypass (CABG), hysterectomy, RAHEEM/BSO , other, pacemaker - Social History Smoking Status: Unknown if ever smoked Smokeless Tobacco Status: No Alcohol use: none Drug use: none Medications and Allergies Albuterol Sulfate [Ventolin Hfa] 1 puff IH Q6H 01/26/16 [History] Ergocalciferol (VITAMIN D2) [Vitamin D2] 50,000 unit PO QWEEK #0 01/26/16 [ History] Gabapentin 250 mg GTUBE BID 01/26/16 [History] Insulin Glargine,Hum.rec.anlog [Lantus Solostar] 10 unit SQ DAILY 01/26/16 [ History] Labetalol HCl 200 mg GTUBE BID 01/26/16 [History] Losartan Potassium [Cozaar] 50 mg GTUBE DAILY 01/26/16 [History] Nortriptyline HCl 10 mg GTUBE HS 01/26/16 [History] Ondansetron Oral Soln [Zofran Oral Soln] 4 mg GTUBE TID 01/26/16 [History] Polyethylene Glycol 3350 [MiraLAX] 17 gm GTUBE DAILY 01/26/16 [History] Potassium Chloride Elixir [Potassium Chloride] 10 meq GTUBE DAILY 01/26/16 [ History] Furosemide [Lasix] 20 mg PO Q48H 365 Days 01/29/16 [Rx] Albuterol Sulfate [Ventolin Hfa] 18 gm IH Q6H PRN 06/12/16 [History] Mv-Mn/FA/Coq10/Lycopene/Lutein [Theragran-M Premier 50+ Caplet] 5 ml GTUBE QAM 06/12/16 [History] Allergies No Known Allergies Allergy (Verified 05/21/16 23:37) All Systems Review: A 10-system review of systems was performed and is negative for pertinent findings except as documented above in the HPI. - Cardiovascular Cardiovascular: as per HPI Physical Examination Vital Signs, Last 4 Hours Temp Pulse Resp BP Pulse Ox 06/14/16 12:00 78 23 96 06/14/16 11:46 98.6 F 82 18 116/58 97 06/14/16 11:00 98.3 F 78 16 120/64 97 06/14/16 10:50 14 97 06/14/16 10:28 99.3 F 88 18 120/64 92 L 06/14/16 10:00 86 25 95 HEENT: Atraumatic, Normocephaly Cardiac: Reg Rate and Rhythm, Normal S1 and S2 Lungs: Other (Coarse breath sounds throughout) Neuro: Alert and responsive Abdomen: Soft Skin: No rashes noted on visualized skin Musculoskeletal: Other (reproducible chest wall tenderness) Extremities: No Edema, Normal Pulses Results 06/14/16 05:44 06/14/16 04:59 Lab Results 06/13/16 06/14/16 06/14/16 19:16 04:59 05:44 WBC 9.9 Hgb 7.7 L D Hct 26.0 L Plt Count 211 Sodium 146 H Potassium 4.1 Chloride 108 Carbon Dioxide 29 BUN 41 H Creatinine 1.16 H Glucose 229 H Calcium 8.2 L Magnesium 2.1 - Imaging and Cardiology Echo: report reviewed Other Results: 12 hour tele: avg HR=84 SR. - EKG Interpretation EKG results cardiology: personally reviewed Consult Discharge Plan - Plan Referrals: Karina Abrams, CODE MACHINE OPERATOR [Primary Care Provider] -
--- NOTE | 2016-06-14 14:55 | IR Procedure Note ---
Date of procedure: 06/14/16 Consent Obtained: Verbal consent, Written consent Timeout: Correct patient and procedure verified, Correct site verified, Time out performed, Skin prep completed Local anesthetic: Lidocaine 1% Indications: Right pleural effusion Procedure Performed: Right thoracentesis Site/Technique: Right thoracentesis performed Results/Findings: Large right pleural effusion Estimated blood loss (cc): 2 Complications: None; Tolerated procedure well Post Procedure Treatment Plan: Post procedure CXR pending
[2016-06-14 16:42] LABS: RBC,Pleural Fluid 0.025 M/mcL
[2016-06-14 18:03] LABS: Appearance of Pleural Fl Bloody (Clear)
[2016-06-14 18:32] LABS: Hematocrit 25.2 % (35.3-44.9); Hemoglobin 7.7 g/dL (11.5-15.4)
[2016-06-14 18:39] LABS: Amylase,Pleural Fluid 14 Units/L (No Ref Range); LDH,Pleural Fluid 156 Units/L (No Ref Range)
[2016-06-14 18:40] LABS: Total Protein,Pleural Fluid 4.1 g/dL (No Ref Range)
[2016-06-14] MEDS: traZODone 50 MG TABLET GTUBE SCH (23:29)
[2016-06-15] MEDS: Levofloxacin 500 MG/100 ML 500 MG/100 ML BAG IVPB SCH (00:11)
[2016-06-15] MEDS: Insulin LISPRO 300 UNITS/3 ML VIAL SQ SCH ×6 (00:51→20:46)
[2016-06-15] MEDS: *HR* Morphine 2 MG/ML SYRINGE IVP PRN ×3 (01:15→18:10)
[2016-06-15 01:34] LABS: Basophils % 0.2 %; Eosinophils # 0.1 K/mcL (0.0-0.6); Eosinophils % 2.5 %; Hematocrit 25.8 % (35.3-44.9); Hemoglobin 7.5 g/dL (11.5-15.4); Immature Granulocytes % 0.8 % (0-4); Lymphocytes # 0.9 K/mcL (0.6-4.6); Mean Corpuscular HGB Conc 29.1 g/dL (31.6-35.5); Mean Corpuscular Hemoglobin 30.9 pg (28.0-33.3); Mean Corpuscular Volume 106.2 fL (83.0-100.0); Mean Platelet Volume 10.2 fL (9.4-12.4); Monocytes # 0.1 K/mcL (0.0-1.3); Monocytes % 2.7 %; Platelet Count 208 K/mcL (140-400); Red Blood Count 2.43 M/mcL (3.82-4.97); Segmented Neutrophils % 75.8 %
[2016-06-15 01:49] LABS: BUN/Creatinine Ratio 29 (6-26); Calcium 8.2 mg/dL (8.6-10.8); Carbon Dioxide 29 mEq/L (19-29); Chloride 107 mEq/L (98-109); Glucose 314 mg/dL (70-99); Osmolality,Calculated 317 (280-300); Potassium 4.1 mEq/L (3.5-4.5); Sodium 145 mEq/L (136-145); eGFR For African Americans > 60 (> 60); eGFR For Non-African Americans 55 (> 60)
[2016-06-15 01:50] LABS: Blood Urea Nitrogen 28 mg/dL (7-20)
[2016-06-15 01:51] LABS: % Iron Saturation 20 % (15-50); Iron 28 mcg/dL (50-170); Transferrin 98 mg/dL (180-382)
[2016-06-15 02:13] LABS: Ferritin 294 ng/ml (5-204)
[2016-06-15 02:27] LABS: Folate 16.4 ng/mL (7.0-31.4)
[2016-06-15] MEDS ORDERED: Vancomycin 1,500 MG in D5% in Water 250 ML IVPB SCH (04:00)
[2016-06-15] MEDS: Ipratropium/Albuterol Neb 3 ML IH SCH ×4 (05:27→22:23)
[2016-06-15] MEDS: *HR* Heparin 5,000 UNIT/ML VIAL SQ SCH ×2 (06:12→16:19)
[2016-06-15] MEDS: Piperacillin/Tazobactam 3.375 GM in D5% in Water (Mini-Bag+) 100 ML IVPB SCH ×3 (06:13→20:47)
[2016-06-15] MEDS: Pantoprazole 40 MG VIAL IVP SCH (07:55)
[2016-06-15] MEDS: Nystatin SUSP 5 ML UD.LIQ PO SCH ×4 (07:56→20:41)
[2016-06-15] MEDS: Thiamine (B-1) 100 MG TABLET PO SCH (07:56)
[2016-06-15] MEDS: Gabapentin 300 MG CAPSULE GTUBE SCH ×2 (07:56→20:39)
[2016-06-15] MEDS: tiZANidine 4 MG TABLET GTUBE SCH ×2 (07:56→20:39)
[2016-06-15] MEDS: Vitamin B Complex/Vit C/Vit E 1 EACH TABLET PO SCH (07:57)
[2016-06-15] MEDS: traMADol 50 MG TABLET GTUBE SCH ×2 (07:57→20:40)
[2016-06-15] MEDS: Folic Acid 1 MG TABLET PO SCH (07:57)
[2016-06-15] MEDS: Fluconazole 200 MG/100 ML 200 MG/100 ML BAG IVPB SCH (07:58)
[2016-06-15] MEDS: Insulin DETEMIR 100 UNIT/ML X5UNITS SQ SCH ×2 (08:11→20:54)
[2016-06-15] MEDS: Artificial Tears SOLN 15 ML BOTTLE BOTH EYES SCH ×2 (08:13→20:41)
[2016-06-15] MEDS: Nystatin POWDER 30 GM BOTTLE TP SCH ×3 (08:13→20:40)
[2016-06-15] MEDS ORDERED: Aminoglycoside Consult 1 EACH MC ONE (09:04)
--- NOTE | 2016-06-15 09:59 | ECHO - Doppler Report ---
Echocardiogram Name: Yolie Mcgraw Date of Study: 06/14/2016 Date: 1940 Ht: 61.0 in Medical Record#: [id number] Age: 75 Wt: 144.0 lb Gender: Female BSA: 1.64 Order #: [id number] Location: [facility] Room #: 2N15 Reading Physician: Jessica Viveros DO Steam Oven Operator: Jennifer Talavera RDCS Ordering Physician: Chelsea Lewis MD Primary Physician: Karina Abrams CNP Indications: Elevated Troponin Impressions: LVEF 60%. Normal left ventricular size and systolic function. There is evidence of mild diastolic dysfunction of the left ventricle. Normal right ventricular size and function. Mild mitral regurgitation. Mild tricuspid regurgitation. Mild pulmonic regurgitation. No pulmonary hypertension. Left Ventricular Wall Motion: Rest Echo Findings All wall segments showed normal motion. Findings: Study Quality * Technically adequate exam. ECG Findings * Normal sinus rhythm. Left Ventricle * Normal LV chamber size, wall thickness and function. * LVEF 60%. * Mild left ventricular diastolic dysfunction. Mitral Valve * Normal mitral valve structure. * No mitral stenosis. * Mild mitral regurgitation. * Mild mitral annular calcification Tricuspid Valve * Normal tricuspid valve structure. * Mild tricuspid regurgitation. Pulmonic Valve * Pulmonic valve is not well visualized. * No pulmonic stenosis. * Mild pulmonic regurgitation. Pulmonary Artery * Pulmonary artery not well visualized. Aortic Valve * Trileaflet aortic valve. * Normal aortic valve structure. * No aortic stenosis. * No aortic regurgitation. Right Ventricle * Normal right ventricular structure and function. Right Atrium * Normal right atrial size. Interatrial Septum * No evidence of PFO by color Doppler. IVC * The IVC is not well evaluated. Pericardium * There is no pericardial effusion present. Aorta * Normally sized aortic root. Left Atrium * Mildly dilated left atrium. History Hypertension Diabetes Hypercholesteremia History of CAD/PTCA Coronary Artery Bypass Graft Congestive Heart Failure Pacer/ICD Implant 06/30/2012 a Previous Echo was performed. Measurements: BP: 116/ 58 2D Normal Values IVSd: .88 cm 0.6 - 1.0 cm LVIDd: 4.57 cm 3.7 - 5.6 cm LVPWd: .84 cm 0.6 - 1.1 cm LVIDs: 2.76 cm 1.5 - 3.6 cm AO: 2.70 cm < 4.0 cm LA: 4.50 cm 2.0 - 4.0cm %FS: 39.60 cm >25 % LA volume: 59 Mitral Valve Peak E:.90 m/sec Peak A:1.22 m/sec E/A Ratio:0.7 Peak E' Lat Bean:13.3 cm/s Peak E' Med Bean:5.72 cm/s E/E' Lat Ratio:6.7 E/E' Med Ratio:15.7 Tricuspid Valve TV Regurg Peak Grad: 27.00mmHg TV Regurg Peak Bean: 2.61m/sec Updated by Jessica Viveros on 06/15/2016 9:54:35 AM electronically signed on 06/15/2016 9:55:22 AM with status of Final Wall Motion Kennedy: 1=Normal, 2=Hypokinesis, 3=Akinesis, 4=Dyskinesis, 5=Aneurysmal, 6=Hyperkinetic, X=Not Visualized (Blank)=Missing
--- NOTE | 2016-06-15 13:16 | Cardiology Progress Note ---
Date of Encounter: 06/15/16 Time of Encounter: 13:00 Assessment and Plan (1) Elevated troponin Current Visit: Yes Status: Acute Peak troponin 1.29 with downward trend in the setting of acute anemia, accelerated HTN, and PNA; likely secondary to demand ischemia. No ischemic ECG changes. Pain free upon exam. Recommend conservative medical management, continue betablocker and statin. Ideally, start asa however will hold given anemia. Last TTE shows preserved LV function, EF 55% with normal wall motion. TTE this admission shows preserved LV function with normal wall motion. No further inpatient cardiology recommendations, will sign-off. Follow-up as outpatient. (2) Pneumonia Current Visit: Yes Status: Acute PNA per outpatient CXR--right lobe. Defer mgmt per primary service. Qualifiers: Pneumonia type: due to unspecified organism Laterality: right Lung location: unspecified part of lung Qualified Code(s): J18.9 - Pneumonia, unspecified organism (3) Accelerated hypertension Current Visit: Yes Status: Chronic Controlled as inpt. Continue betablocker and ARB. Discussion w patient/family: The assessment and plan as outlined above was discussed with the patient and/or family members who expressed understanding and agreement. All questions were answered. Thank you for involving us in the care of your patient. Please call with any questions. The patient will be discussed and reviewed with Dr. Delgadillo; changes to be made accordingly. Subjective Principal diagnosis: Elevated troponin, PNA, anemia Interval history: Seen and examined. Complaints of pain to buttock today. No chest pain or discomfort. Objective Vital Signs, Last 4 Hours Temp Pulse Resp BP Pulse Ox 06/15/16 11:25 84 16 127/57 99 06/15/16 11:05 87 16 122/66 99 06/15/16 10:55 98.3 F 85 18 122/66 98 06/15/16 10:52 16 100 06/15/16 10:07 86 12 99 General: Conversant, Other (speech deficit d/t CVA hx) HEENT: Atraumatic, Normocephaly Cardiac: Reg Rate and Rhythm, Normal S1 and S2 Lungs: Other (coarse breath sounds throughout) Neuro: Alert and responsive Abdomen: Soft Skin: No rashes noted on visualized skin Musculoskeletal: No Chest Wall Tenderness Extremities: No Edema, Normal Pulses Results 06/15/16 00:57 06/15/16 00:57 Lab Results 06/14/16 06/14/16 06/15/16 14:36 18:17 00:57 WBC 5.2 Hgb 7.7 L 7.5 L Hct 25.2 L 25.8 L Plt Count 208 Sodium Potassium Chloride Carbon Dioxide BUN Creatinine Glucose Calcium Troponin I 0.29 H* 06/15/16 00:57 WBC Hgb Hct Plt Count Sodium 145 Potassium 4.1 Chloride 107 Carbon Dioxide 29 BUN 28 H D Creatinine 0.98 Glucose 314 H Calcium 8.2 L Troponin I - Imaging and Cardiology Echo: report reviewed Other Results: 12 hour tele: avg HR=83 SR. No significant event. - EKG Interpretation EKG results cardiology: personally reviewed - VTE Documentation of Mechanical Device: Intermittent pneumatic compression device Consult Discharge Plan - Plan Referrals: Karina Abrams, EMI [Primary Care Provider] -
--- NOTE | 2016-06-15 19:16 | Internal Med Progress Note ---
Date of Encounter: 06/15/16 Time of Encounter: 19:14 - Assessment and plan (1) Pneumonia Current Visit: Yes Status: Acute Qualifiers: Pneumonia type: due to unspecified organism Laterality: right Lung location: unspecified part of lung Qualified Code(s): J18.9 - Pneumonia, unspecified organism (2) Acute kidney injury superimposed on CKD Current Visit: Yes Status: Acute (3) Acute on chronic respiratory failure with hypoxia and hypercapnia Current Visit: Yes Status: Acute (4) Pleural effusion Current Visit: Yes Status: Acute (5) Toxic metabolic encephalopathy Current Visit: Yes Status: Acute (6) CAD (coronary artery disease), [place] coronary artery Current Visit: Yes Status: Chronic Qualifiers: [place] vs. transplanted heart: [place] heart Associated angina: angina presence unspecified Qualified Code(s): I25.10 - Atherosclerotic heart disease of [place] coronary artery without angina pectoris (7) DM type 2 (diabetes mellitus, type 2) Current Visit: Yes Status: Chronic Qualifiers: Diabetes mellitus complication status: with unspecified complications Diabetes mellitus senior care insulin use: unspecified technician terminal and repeater insulin use status Qualified Code(s): E11.8 - Type 2 diabetes mellitus with unspecified complications (8) CKD (chronic kidney disease) stage 3, GFR 30-59 ml/min Current Visit: Yes Status: Chronic Assessment and plan: blood culture negative, continue Zosyn and levaquin, will stop Vancomycin. monitor labs, ins and outs. Continue oral Diflucan. Continue Accu check with insulin coverage. Appreciate cardiology recommendations, elevated troponin secondary to demand ischemia. - Subjective Interval history: Patient evaluated, seen lying in bed. No new complains. - Constitutional Vitals: Temp Pulse Resp BP Pulse Ox 99.2 F 88 14 136/65 99 06/15/16 18:39 06/15/16 18:39 06/15/16 18:39 06/15/16 18:39 06/15/16 18:39 General appearance: Present: cachectic, cooperative, A&O X 1, disheveled, severe distress, underweight, answers questions appropriately - Head Head exam: Present: atraumatic, normocephalic - Eye Eye exam: Present: PERRL, conjuntiva pink, sclera anicteric Pupils: Present: PERRL - Neck Neck exam general surgery: Present: supple, trachea midline. Absent: lymphadenopathy - Respiratory Respiratory exam: Present: decreased breath sounds. Absent: accessory muscle use, rales, rhonchi, wheezes - Cardiovascular Cardiovascular exam: Present: RRR, +S1, +S2. Absent: diastolic murmur, gallop, rubs, systolic murmur - GI/Abdominal GI/Abdominal exam: Present: normal bowel sounds, soft, no peritoneal signs. Absent: distended, tenderness - Extremities Exam Extremities exam: Present: warm, radial pulses palpable and symetrical. Absent : calf tenderness, cyanotic, pedal edema - Neurological Exam Neurological exam: Present: CN II-XII intact, oriented X3, no focal deficits. Absent: pronater drift, facial droop, speech deficit - Skin Skin exam: Present: dry, intact Internal Medicine: Result - Labs CBC & Chem 7: 06/15/16 00:57 06/15/16 00:57 Labs: Short CBC 06/15/16 Range/Units 00:57 WBC 5.2 (4.3-11.1) K/mcL Hgb 7.5 L (11.5-15.4) g/dL Hct 25.8 L (35.3-44.9) % Plt Count 208 (140-400) K/mcL Neutrophils # 4.0 (1.6-8.9) K/mcL BMP 06/15/16 00:57 Sodium 145 Potassium 4.1 Chloride 107 Carbon Dioxide 29 BUN 28 H D Creatinine 0.98 Glucose 314 H Calcium 8.2 L - VTE Documentation of Mechanical Device: Intermittent pneumatic compression device Consult Discharge Plan - Plan Referrals: Karina Abrams, EMI [Primary Care Provider] -
[2016-06-15] MEDS: traZODone 50 MG TABLET GTUBE SCH (20:40)
[2016-06-16] MEDS: Insulin LISPRO 300 UNITS/3 ML VIAL SQ SCH ×6 (00:10→21:53)
[2016-06-16] MEDS: Clotrimazole/Betameth Dip CRM 45 APPL/45 GM TUBE TP SCH ×3 (03:04→21:54)
[2016-06-16] MEDS: *HR* Heparin 5,000 UNIT/ML VIAL SQ SCH ×2 (04:56→19:03)
[2016-06-16] MEDS: Piperacillin/Tazobactam 3.375 GM in D5% in Water (Mini-Bag+) 100 ML IVPB SCH ×3 (04:56→21:52)
[2016-06-16] MEDS ORDERED: Vancomycin 1,000 MG in D5% in Water 250 ML IVPB SCH (05:00)
[2016-06-16] MEDS: Ipratropium/Albuterol Neb 3 ML IH SCH ×4 (05:12→23:16)
[2016-06-16 06:26] LABS: Basophils % 0.1 %; Eosinophils # 0.2 K/mcL (0.0-0.6); Hematocrit 24.2 % (35.3-44.9); Hemoglobin 7.2 g/dL (11.5-15.4); Immature Granulocytes % 0.8 % (0-4); Lymphocytes # 1.3 K/mcL (0.6-4.6); Lymphocytes % 17.4 %; Mean Corpuscular HGB Conc 29.8 g/dL (31.6-35.5); Mean Corpuscular Hemoglobin 31.2 pg (28.0-33.3); Mean Corpuscular Volume 104.8 fL (83.0-100.0); Mean Platelet Volume 10.4 fL (9.4-12.4); Monocytes # 0.2 K/mcL (0.0-1.3); Monocytes % 2.7 %; Neutrophils # 5.6 K/mcL (1.6-8.9); Platelet Count 231 K/mcL (140-400); Red Blood Count 2.31 M/mcL (3.82-4.97); Red Cell Distribution Width 12.9 % (11.5-14.5)
[2016-06-16 06:33] LABS: BUN/Creatinine Ratio 25 (6-26); Blood Urea Nitrogen 20 mg/dL (7-20); Calcium 8.7 mg/dL (8.6-10.8); Carbon Dioxide 31 mEq/L (19-29); Chloride 108 mEq/L (98-109); Glucose 91 mg/dL (70-99); Osmolality,Calculated 304 (280-300); Potassium 3.3 mEq/L (3.5-4.5); Sodium 146 mEq/L (136-145); eGFR For African Americans > 60 (> 60); eGFR For Non-African Americans > 60 (> 60)
[2016-06-16] MEDS ORDERED: Fluconazole 100 MG TABLET PO SCH (09:00)
--- NOTE | 2016-06-16 09:58 | Internal Med Progress Note ---
<Sathish Yanez - Last Filed: 06/16/16 14:16> - Assessment and plan (1) PEG (percutaneous endoscopic gastrostomy) status Current Visit: Yes Status: Acute Assessment and plan: -PEG tube placement because of recent stroke -PEG tube leaking. -EGD tonight to evaluate PEG tube and look for possible causes of decrease H and H (2) DM type 2 (diabetes mellitus, type 2) Current Visit: Yes Status: Chronic Qualifiers: Diabetes mellitus complication status: with unspecified complications Diabetes mellitus usp insulin use: unspecified bed bug exterminator insulin use status Qualified Code(s): E11.8 - Type 2 diabetes mellitus with unspecified complications (3) Pneumonia Current Visit: Yes Status: Acute Qualifiers: Pneumonia type: due to unspecified organism Laterality: right Lung location: unspecified part of lung Qualified Code(s): J18.9 - Pneumonia, unspecified organism (4) Acute kidney injury superimposed on CKD Current Visit: Yes Status: Acute (5) Pleural effusion Current Visit: Yes Status: Acute (6) Toxic metabolic encephalopathy Current Visit: Yes Status: Acute - Time Spent With Patient 25 - 35 minutes - Constitutional Vitals: Temp Pulse Resp BP Pulse Ox 98 F 88 16 138/68 100 06/16/16 07:00 06/16/16 07:00 06/16/16 07:00 06/16/16 07:00 06/16/16 07:00 General appearance: Present: cachectic, A&O X 1, disheveled, severe distress, underweight. Absent: answers questions appropriately Internal Medicine: Result - Labs CBC & Chem 7: 06/16/16 05:44 06/16/16 05:44 Labs: Short CBC 06/16/16 Range/Units 05:44 WBC 7.3 (4.3-11.1) K/mcL Hgb 7.2 L (11.5-15.4) g/dL Hct 24.2 L (35.3-44.9) % Plt Count 231 (140-400) K/mcL Neutrophils # 5.6 (1.6-8.9) K/mcL BMP 06/16/16 05:44 Sodium 146 H Potassium 3.3 L Chloride 108 Carbon Dioxide 31 H BUN 20 Creatinine 0.81 Glucose 91 Calcium 8.7 - VTE Documentation of Mechanical Device: Intermittent pneumatic compression device Consult Discharge Plan - Plan Instructions: Metronidazole (By mouth), Nystatin (On the skin), Laxative, Stool Softeners (By mouth), Atorvastatin (By mouth), Diabetes Mellitus Type 2 in Adults (DC), Sepsis (DC), Hyperosmolar Hyperglycemic State (DC), Hyperosmolar Hyperglycemic State (GEN), Chronic Hypertension (DC), Pneumonia (DC ), How to Use and Care for Your PEG Tube, Director Product Safety (GEN) Referrals: Karina Abrams, HEDDLER [Primary Care Provider] - Prescriptions: Atorvastatin [Lipitor] 20 mg GTUBE HS #30 tablet Docusate [Colace] 100 mg GTUBE BID #60 udc MetroNIDAZOLE [Flagyl] 500 mg GTUBE TID #42 tablet Nystatin POWDER [Nystop] 1 appl TP TID PRN #1 bottle PRN Reason: rash <Shane Alston - Last Filed: 06/18/16 18:08> Date of Encounter: 06/16/16 Time of Encounter: 09:00 - Assessment and plan (1) Acute on chronic respiratory failure with hypoxia and hypercapnia Current Visit: Yes Status: Acute (2) PEG tube malfunction Current Visit: Yes Status: Acute (3) Hypertension Current Visit: Yes Status: Chronic Qualifiers: Qualified Code(s): I10 - Essential (primary) hypertension (4) Pleural effusion Current Visit: Yes Status: Chronic (5) Anemia Current Visit: Yes Status: Acute Qualifiers: Qualified Code(s): D64.9 - Anemia, unspecified (6) Irritation around percutaneous endoscopic gastrostomy (PEG) tube site Current Visit: Yes Status: Acute (7) Pneumonia Current Visit: Yes Status: Acute Qualifiers: Qualified Code(s): J18.9 - Pneumonia, unspecified organism - Subjective Interval history: Ms. Mcgraw has been transferred from ICU. She is currently receiving tube feeds and has no specific complaints. H/H has been decreasing. - Constitutional Vitals: Temp Pulse Resp BP Pulse Ox 98.1 F 74 16 106/52 96 06/18/16 16:03 06/18/16 16:03 06/18/16 16:03 06/18/16 16:03 06/18/16 16:03 Internal Medicine: Result - Labs CBC & Chem 7: 06/18/16 15:07 06/18/16 03:45 Labs: Short CBC 06/18/16 06/18/16 Range/Units 03:45 15:07 WBC 5.9 (4.3-11.1) K/mcL Hgb 7.9 L 7.9 L (11.5-15.4) g/dL Hct 26.2 L 25.9 L (35.3-44.9) % Plt Count 192 (140-400) K/mcL Neutrophils # 4.6 (1.6-8.9) K/mcL BMP 06/18/16 03:45 Sodium 145 Potassium 3.7 Chloride 107 Carbon Dioxide 30 H BUN 14 Creatinine 0.82 Glucose 174 H Calcium 8.8 - Attending Attestation I examined this patient and my medical decision-making was reviewed with the Resident Physician 06/16/16. I agree with the documented findings, disposition and treatment plan as described except to the extent set forth below. Ms. Mcgraw is currently admitted for HCAP - presumed gram neg, dysphagia and anemia. She is moderate to high risk due to potential for worsening respiratory status and complications from anemia. Ms. Mcgraw denies complaint. She is without pain at this time and is breathing ok. No fever. No diarrhea. She is waiting EGD and evaluation of PEG Exam Alert Mucus membranes dry Heart reg Lungs diminished Abd soft I/P 1. Pneumonia - suspect gram negative 2. Recent CVA with dysphagia and dysarthria 3. PEG malfunction 4. Anemia - ? cause Further diagnoses and plan as above.
[2016-06-16] MEDS: Pantoprazole 40 MG VIAL IVP SCH (10:03)
[2016-06-16] MEDS: tiZANidine 4 MG TABLET GTUBE SCH ×2 (10:04→21:52)
[2016-06-16] MEDS: Thiamine (B-1) 100 MG TABLET PO SCH (10:04)
[2016-06-16] MEDS: traMADol 50 MG TABLET GTUBE SCH ×2 (10:04→21:51)
[2016-06-16] MEDS: Folic Acid 1 MG TABLET PO SCH (10:04)
[2016-06-16] MEDS: Nystatin SUSP 5 ML UD.LIQ PO SCH ×4 (10:05→21:52)
[2016-06-16] MEDS: Vitamin B Complex/Vit C/Vit E 1 EACH TABLET PO SCH (10:05)
[2016-06-16] MEDS: Gabapentin 300 MG CAPSULE GTUBE SCH ×2 (10:05→21:51)
[2016-06-16] MEDS: Insulin DETEMIR 100 UNIT/ML X5UNITS SQ SCH ×2 (10:19→21:56)
[2016-06-16] MEDS: Artificial Tears SOLN 15 ML BOTTLE BOTH EYES SCH ×2 (10:41→21:54)
[2016-06-16] MEDS: Nystatin POWDER 30 GM BOTTLE TP SCH ×3 (10:42→21:54)
--- NOTE | 2016-06-16 11:25 | Gastroenterology Consult Note ---
<Uribe,Juan J Wade - Last Filed: 06/16/16 11:20> Date of Encounter: 06/16/16 Time of Encounter: 10:15 - Assessment and plan (1) PEG tube malfunction Current Visit: Yes Status: Acute Assessment and plan: PEG tube appears to be leaking at insertion site, surrounding skin with erythema. Plan for EGD tomorrow. (2) Abdominal pain Current Visit: Yes Status: Acute Assessment and plan: Likely secondary to PEG tube malfunction. Skin surrounding PEG tube is erythema. Qualifiers: Abdominal location: upper abdomen, unspecified Qualified Code(s): R10.10 - Upper abdominal pain, unspecified (3) Anemia Current Visit: Yes Status: Acute Assessment and plan: Continue to monitor CBC and transfuse PRBC as needed. Qualifiers: Anemia type: unspecified type Qualified Code(s): D64.9 - Anemia, unspecified (4) Pneumonia Current Visit: Yes Status: Acute Qualifiers: Pneumonia type: due to unspecified organism Laterality: right Lung location: unspecified part of lung Qualified Code(s): J18.9 - Pneumonia, unspecified organism - Time Spent With Patient Total time spent is greater than 50% in coordination of care (as documented) at patient's floor/unit and/or counseling patient: GI History of Present Illness - Data of Consult Patient: new to practice Consult date: 06/16/16 Requesting Physician: Shane Alston DO - Consult Narrative Reason for consult: Leaking PEG tube, upper abdominal pain History of present illness: Ms. Mcgraw is a 75 year old female with PMHx of DM, HTN, CAD, CABG, AMI, COPD, s/ p CVA, failure to thrive, PEG tube dependent, quadriplegia, anemia of chronic disease, CKD, who was transferred from [facility] where she presented due to increased confusion, upper abdominal pain, and pneumonia. Hgb on 06/12/16 was 10.6 and Hgb 7.2 today. We were consulted for a leaking PEG tube and upper abdominal pain. Pt complaining of pain at PEG tube insertion site. Procedures: EGD 05/03/[address] Rafael keller, PEG tube successfully placed. Colonoscopy 01/27/[address] Thorpe with 3 tubular adenoma. NSAIDs: None Anticoagulation: None Past Med Surg Social Fam HX - Past Medical History Medical history: arthritis, asthma, CHF, COPD, coronary artery disease, CVA, diabetes, GERD, hyperlipidemia, hypertension, osteoporosis, renal disease, seizures, thyroid disease, other Psychiatric history: anxiety, depression - Past Surgical History Surgical History: cholecystectomy, colectomy (Colonic resection.), coronary bypass (CABG), hysterectomy, orthopedic, other (Interbody fusion at L4-L5 posterior lumbar. Cervical spine disc colectomy. Lumbar disks activity.), RAHEEM/ BSO, other (Tubal ligation. Tonsillectomy adenoidectomy. Upper and lower teeth extractions.), pacemaker - Social History Smoking Status: Unknown if ever smoked Smokeless Tobacco Status: No Alcohol use: none Drug use: none - Gastrointestinal Gastrointestinal: Present: as per HPI - Constitutional Constitutional: as per HPI - EENT Eyes: as per HPI Ears: Present: as per HPI Nose, mouth and throat: Present: as per HPI - Cardiovascular Cardiovascular ROS: Present: as per HPI - Respiratory Respiratory IM: Present: as per HPI - Genitourinary Genitourinary: Absent: change in color, Urinary frequency - Neurological ROS Neurological GI: Present: as per HPI - Hematologic/Lymphatic Hematologic/Lymphatic pediatric: Present: as per HPI - Musculoskeletal Musculoskeletal ROS GI: Present: as per HPI - Integumentary Integumentary GI: Present: as per HPI - Psychiatric ROS Psychiatric GI: Present: as per HPI - Endocrine Endocrine IM: Present: as per HPI - Constitutional Vitals: Temp Pulse Resp BP Pulse Ox 98 F 88 16 138/68 100 06/16/16 07:00 06/16/16 07:00 06/16/16 07:00 06/16/16 07:00 06/16/16 07:00 General appearance: Present: cooperative, A&O X 3, no acute distress, answers questions appropriately - Head Head exam: Present: atraumatic, normocephalic - Eye Eye exam: Present: normal appearance, sclera anicteric - ENT ENT exam: Present: mucous membranes dry - Neck Neck exam general surgery: Present: normal inspection, trachea midline - Respiratory Respiratory exam: Present: decreased breath sounds, CTAB. Absent: rales, rhonchi - Cardiovascular Cardiovascular exam: Present: RRR, +S1, +S2 - GI/Abdominal GI/Abdominal exam: Present: normal bowel sounds, soft, tenderness (At PEG tube insertions site), no peritoneal signs. Absent: distended, firm, guarding Additional comments: Erythema surrounding PEG tube insertion site. - Rectal Rectal exam: Present: deferred - Extremities Exam Extremities exam: Present: warm - Neurological Exam Neurological exam: Present: no focal deficits - Psychiatric Psychiatric exam: Present: normal affect, normal mood - Skin Skin exam: Present: dry, intact, normal color, warm Results - Labs CBC & Chem 7: 06/16/16 05:44 06/16/16 05:44 Labs: Last Result Calcium 8.7 mg/dL (8.6-10.8) 06/16/16 05:44 Iron 28 mcg/dL (50-170) L 06/15/16 00:57 % Saturation 20 % (15-50) 06/15/16 00:57 Transferrin 98 mg/dL (180-382) L 06/15/16 00:57 Ferritin 294 ng/ml (5-204) H 06/15/16 00:57 Troponin I 0.29 ng/mL (0-0.03) H* 06/14/16 14:36 Triglycerides 73 mg/dL (< 150) 06/13/16 04:00 Vitamin B12 1232 pg/mL (213-816) H 06/15/16 00:57 Folate 16.4 ng/mL (7.0-31.4) 06/15/16 00:57 Entire Visit Hgb 7.2 g/dL (11.5-15.4) L 06/16/16 05:44 Hct 24.2 % (35.3-44.9) L 06/16/16 05:44 Ferritin 294 ng/ml (5-204) H 06/15/16 00:57 Total Bilirubin 0.6 mg/dL (0.2-1.2) 06/12/16 22:34 AST 14 Units/L (5-34) 06/12/16 22:34 ALT 8 Units/L (0-55) 06/12/16 22:34 Folate 16.4 ng/mL (7.0-31.4) 06/15/16 00:57 Consult Discharge Plan - Plan Referrals: Karina Abrams, MEDICAL ASSISTANT FLOAT [Primary Care Provider] - <Lili Kilpatrick - Last Filed: 06/16/16 17:53> Time of Encounter: 14:00 - Time Spent With Patient Total time spent is greater than 50% in coordination of care (as documented) at patient's floor/unit and/or counseling patient: GI History of Present Illness - Data of Consult Requesting Physician: Shane Alston DO - Consult Narrative History of present illness: Ms. Mcgraw is a 75 year old female - Constitutional Vitals: Temp Pulse Resp BP Pulse Ox 98.7 F 91 16 127/66 97 06/16/16 17:45 06/16/16 17:45 06/16/16 17:45 06/16/16 17:45 06/16/16 17:45 Results - Labs CBC & Chem 7: 06/16/16 14:57 06/16/16 05:44 Labs: Last Result Calcium 8.7 mg/dL (8.6-10.8) 06/16/16 05:44 Iron 28 mcg/dL (50-170) L 06/15/16 00:57 % Saturation 20 % (15-50) 06/15/16 00:57 Transferrin 98 mg/dL (180-382) L 06/15/16 00:57 Ferritin 294 ng/ml (5-204) H 06/15/16 00:57 Troponin I 0.29 ng/mL (0-0.03) H* 06/14/16 14:36 Triglycerides 73 mg/dL (< 150) 06/13/16 04:00 Vitamin B12 1232 pg/mL (213-816) H 06/15/16 00:57 Folate 16.4 ng/mL (7.0-31.4) 06/15/16 00:57 Entire Visit Hgb 7.3 g/dL (11.5-15.4) L 06/16/16 14:57 Hct 24.3 % (35.3-44.9) L 06/16/16 14:57 Ferritin 294 ng/ml (5-204) H 06/15/16 00:57 Total Bilirubin 0.6 mg/dL (0.2-1.2) 06/12/16 22:34 AST 14 Units/L (5-34) 06/12/16 22:34 ALT 8 Units/L (0-55) 06/12/16 22:34 Folate 16.4 ng/mL (7.0-31.4) 06/15/16 00:57 - Attending Attestation I examined this patient and my medical decision-making was reviewed with the BRIM ROUNDER/PA/Advanced Practice Nurse/Resident Physician. I agree with the documented findings, disposition and treatment plan as described except to the extent set forth below. Patient with PEG tube malfunction with leakage and also she has redness and erythema around the PEG tube site concerning for infection. Patient also has severe anemia. Does have a history of gastric surgery in the past. Most probably her anemia is due to gastric resection. We will do an EGD to rule out any ulcer especially at the PEG tube insertion site internally. If the PEG tube was found to be loose internally then PEG tube might need to be replaced with a bigger tube. add Gram-positive coverage for bacterial site infection
[2016-06-16 15:16] LABS: Hematocrit 24.3 % (35.3-44.9); Hemoglobin 7.3 g/dL (11.5-15.4)
[2016-06-16] MEDS ORDERED: *HR* Metoprolol 5 MG/5 ML VIAL IVP PRN (15:53)
[2016-06-16] MEDS ORDERED: *HR* FentaNYL (PF) 100 MCG/2 ML VIAL ONE (16:47)
[2016-06-16] MEDS ORDERED: *HR* Midazolam HCl 5 MG/5 ML VIAL IVP ONE (16:48)
[2016-06-16] MEDS ORDERED: Simethicone 40 MG/0.6 ML MLS IR ONE (17:14)
[2016-06-16] MEDS ORDERED: Tetracaine/Benzocaine/Butamben 200MG/SPRAY (100SPY/BOT) MM ONE (17:14)
--- NOTE | 2016-06-16 17:14 | Pre-Sedation Evaluation ---
Pre-sedation evaluation - Pre-sedation checklist Date of procedure: 06/16/16 Procedure: EGD Recent Vitals: Last Vital Signs Temp 98.2 F 06/16/16 16:40 Pulse 79 06/16/16 17:07 Resp 14 06/16/16 17:07 BP 136/61 06/16/16 17:07 Pulse Ox 98 06/16/16 17:07 H&P (including ROS) documented in medical record: Yes Previous reaction to sedatives/anesthetics: No Dietary Status: No solid food in preceding 4 hrs and no liquid in preceding 2 hrs Dentition: dentures removed ASA Classification *see protocol: CLASS III-Severe systemic disease Plan of Care: Pt appropriate candidate for procedure/moderate/conscious sedation , Risks/benefits of procedure/sedation discussed w/ patient/family
[2016-06-16] MEDS: *HR* FentaNYL (PF) 100 MCG/2 ML VIAL IVP PRN ×3 (17:22→17:25)
[2016-06-16] MEDS: *HR* Midazolam HCl 5 MG/5 ML VIAL IVP PRN ×3 (17:22→17:25)
[2016-06-16 20:36] LABS: Hematocrit 21.3 % (35.3-44.9); Hemoglobin 6.7 g/dL (11.5-15.4)
[2016-06-16] MEDS: Fluconazole 100 MG TABLET GTUBE SCH (21:50)
[2016-06-16] MEDS: Docusate Oral Soln 100 MG/10 ML UDC GTUBE SCH (21:52)
[2016-06-16] MEDS: traZODone 50 MG TABLET GTUBE SCH (21:52)
[2016-06-17] MEDS ORDERED: levoFLOXacin 500 MG TABLET GTUBE SCH
[2016-06-17] MEDS ORDERED: levoFLOXacin 500 MG TABLET PO SCH
[2016-06-17 00:44] LABS: Basophils % 0.2 %; Eosinophils # 0.2 K/mcL (0.0-0.6); Eosinophils % 3.4 %; Hemoglobin 6.9 g/dL (11.5-15.4); Immature Granulocytes % 0.4 % (0-4); Immature Platelets 2.7 % (1.1-6.1); Lymphocytes # 1.2 K/mcL (0.6-4.6); Lymphocytes % 21.7 %; Mean Corpuscular Hemoglobin 31.2 pg (28.0-33.3); Mean Corpuscular Volume 104.1 fL (83.0-100.0); Monocytes # 0.2 K/mcL (0.0-1.3); Platelet Count 251 K/mcL (140-400); Red Blood Count 2.21 M/mcL (3.82-4.97); Red Cell Distribution Width 12.9 % (11.5-14.5); Segmented Neutrophils % 71.3 %
[2016-06-17] MEDS: Insulin LISPRO 300 UNITS/3 ML VIAL SQ SCH ×5 (00:53→17:07)
[2016-06-17 00:55] LABS: BUN/Creatinine Ratio 19 (6-26); Blood Urea Nitrogen 15 mg/dL (7-20); Calcium 8.4 mg/dL (8.6-10.8); Carbon Dioxide 33 mEq/L (19-29); Chloride 108 mEq/L (98-109); Glucose 93 mg/dL (70-99); Osmolality,Calculated 303 (280-300); Potassium 3.3 mEq/L (3.5-4.5); Sodium 146 mEq/L (136-145); eGFR For African Americans > 60 (> 60); eGFR For Non-African Americans > 60 (> 60)
[2016-06-17] MEDS: *HR* OxyCODONE Immed Rel 5 MG TABLET GTUBE PRN ×2 (01:12→20:54)
[2016-06-17] MEDS: Ipratropium/Albuterol Neb 3 ML IH SCH ×4 (04:16→23:20)
[2016-06-17] MEDS: Piperacillin/Tazobactam 3.375 GM in D5% in Water (Mini-Bag+) 100 ML IVPB SCH ×3 (04:57→20:52)
[2016-06-17] MEDS: *HR* Heparin 5,000 UNIT/ML VIAL SQ SCH ×2 (04:58→17:07)
[2016-06-17] MEDS: Docusate Oral Soln 100 MG/10 ML UDC GTUBE SCH ×2 (08:10→20:53)
[2016-06-17] MEDS: Pantoprazole 40 MG VIAL IVP SCH (08:10)
[2016-06-17] MEDS: *HR* Morphine 2 MG/ML SYRINGE IVP PRN (08:10)
[2016-06-17] MEDS: Insulin DETEMIR 100 UNIT/ML X5UNITS SQ SCH ×2 (08:10→21:44)
[2016-06-17] MEDS: Vitamin B Complex/Vit C/Vit E 1 EACH TABLET GTUBE SCH (08:11)
[2016-06-17] MEDS: Nystatin SUSP 5 ML UD.LIQ PO SCH ×4 (08:11→20:53)
[2016-06-17] MEDS: Thiamine (B-1) 100 MG TABLET GTUBE SCH (08:12)
[2016-06-17] MEDS: Folic Acid 1 MG TABLET GTUBE SCH (08:12)
[2016-06-17] MEDS: tiZANidine 4 MG TABLET GTUBE SCH ×2 (08:12→20:53)
[2016-06-17] MEDS: Gabapentin 300 MG CAPSULE GTUBE SCH ×2 (08:12→20:54)
[2016-06-17] MEDS: Nystatin POWDER 30 GM BOTTLE TP SCH ×3 (08:13→20:52)
[2016-06-17] MEDS: Fluconazole 100 MG TABLET GTUBE SCH (08:13)
[2016-06-17] MEDS: Clotrimazole/Betameth Dip CRM 45 APPL/45 GM TUBE TP SCH ×2 (08:13→20:53)
[2016-06-17] MEDS: Artificial Tears SOLN 15 ML BOTTLE BOTH EYES SCH ×2 (08:13→20:52)
[2016-06-17] MEDS: traMADol 50 MG TABLET GTUBE SCH ×2 (08:13→20:53)
[2016-06-17] MEDS ORDERED: 0.9 % Sodium Chloride 500 ML ONE (09:12)
--- NOTE | 2016-06-17 11:39 | Internal Med Progress Note ---
<Sathish Yanez - Last Filed: 06/17/16 18:39> Date of Encounter: 06/17/16 Time of Encounter: 08:30 - Assessment and plan (1) PEG (percutaneous endoscopic gastrostomy) status Current Visit: Yes Status: Acute Assessment and plan: -PEG tube placement because of recent stroke -EGD on 06/17/16 to evaluate PEG tube that was leaking -Mild erythema discovered. Recommended adding vanc. -Peg tube functionally normally. (2) DM type 2 (diabetes mellitus, type 2) Current Visit: Yes Status: Chronic Assessment and plan: -continue therapy (3) Pneumonia Current Visit: Yes Status: Acute Assessment and plan: -Resolving -Patient treated at skilled nursing, then 2N, now on 2NE. Abx started on 06/13. -Thorocentesis on 06/15 shows 1200 out. Repeat xr WNL. (4) Acute kidney injury superimposed on CKD Current Visit: Yes Status: Acute Assessment and plan: -Resolving. Continue fluids - Time Spent With Patient 25 - 35 minutes - Subjective Interval history: Patient feels like she is doing better today compared to yesterday. Denies any SOB or chest pain. Admits to mild abdominal pain and leg pain. Patient had EGD yesterday and currently getting a blood transfusion for low H&H. This is her first transfusion, denies bloody bowl movement, hematuria. - Constitutional Vitals: Temp Pulse Resp BP Pulse Ox 98 F 76 16 125/56 99 06/17/16 11:22 06/17/16 11:22 06/17/16 11:22 06/17/16 11:22 06/17/16 11:22 General appearance: Present: cachectic, cooperative, A&O X 1, disheveled, A&O X 3, underweight - Head Head exam: Present: atraumatic, normal inspection - Respiratory Respiratory exam: Present: rhonchi - Cardiovascular Cardiovascular exam: Present: RRR, systolic murmur - GI/Abdominal GI/Abdominal exam: Present: normal bowel sounds, soft, no peritoneal signs. Absent: distended, tenderness - Other Additional findings: Legs are not red, swollen. Very mild edema. no bruising. No ulcer or cellulites. PEG tube secure and covered. No bleeding, erythema, signs of infection. Internal Medicine: Result - Labs CBC & Chem 7: 06/17/16 15:59 06/17/16 00:35 Labs: Short CBC 06/16/16 06/16/16 06/17/16 Range/Units 14:57 20:23 00:35 WBC 5.6 (4.3-11.1) K/mcL Hgb 7.3 L 6.7 L 6.9 L (11.5-15.4) g/dL Hct 24.3 L 21.3 L 23.0 L (35.3-44.9) % Plt Count 251 (140-400) K/mcL Neutrophils # 4.0 (1.6-8.9) K/mcL BMP 06/17/16 00:35 Sodium 146 H Potassium 3.3 L Chloride 108 Carbon Dioxide 33 H BUN 15 Creatinine 0.80 Glucose 93 Calcium 8.4 L - VTE Documentation of Mechanical Device: Intermittent pneumatic compression device Consult Discharge Plan - Plan Instructions: Metronidazole (By mouth), Nystatin (On the skin), Laxative, Stool Softeners (By mouth), Atorvastatin (By mouth), Diabetes Mellitus Type 2 in Adults (DC), Sepsis (DC), Hyperosmolar Hyperglycemic State (DC), Hyperosmolar Hyperglycemic State (GEN), Chronic Hypertension (DC), Pneumonia (DC ), How to Use and Care for Your PEG Tube, Computer Patternmaker (GEN) Referrals: Karina Abrams CNP [Primary Care Provider] - Prescriptions: Atorvastatin [Lipitor] 20 mg GTUBE HS #30 tablet Docusate [Colace] 100 mg GTUBE BID #60 udc MetroNIDAZOLE [Flagyl] 500 mg GTUBE TID #42 tablet Nystatin POWDER [Nystop] 1 appl TP TID PRN #1 bottle PRN Reason: rash <Shane Alston - Last Filed: 06/18/16 18:02> - Assessment and plan (1) Acute on chronic respiratory failure with hypoxia and hypercapnia Current Visit: Yes Status: Acute (2) PEG tube malfunction Current Visit: Yes Status: Acute (3) Hypertension Current Visit: Yes Status: Chronic Qualifiers: Qualified Code(s): I10 - Essential (primary) hypertension (4) Pleural effusion Current Visit: Yes Status: Chronic (5) Anemia Current Visit: Yes Status: Acute Qualifiers: Qualified Code(s): D64.9 - Anemia, unspecified (6) Irritation around percutaneous endoscopic gastrostomy (PEG) tube site Current Visit: Yes Status: Acute (7) Pneumonia Current Visit: Yes Status: Acute Qualifiers: Qualified Code(s): J18.9 - Pneumonia, unspecified organism - Constitutional Vitals: Temp Pulse Resp BP Pulse Ox 98.1 F 74 16 106/52 96 06/18/16 16:03 06/18/16 16:03 06/18/16 16:03 06/18/16 16:03 06/18/16 16:03 Internal Medicine: Result - Labs CBC & Chem 7: 06/18/16 15:07 06/18/16 03:45 Labs: Short CBC 06/18/16 06/18/16 Range/Units 03:45 15:07 WBC 5.9 (4.3-11.1) K/mcL Hgb 7.9 L 7.9 L (11.5-15.4) g/dL Hct 26.2 L 25.9 L (35.3-44.9) % Plt Count 192 (140-400) K/mcL Neutrophils # 4.6 (1.6-8.9) K/mcL BMP 06/18/16 03:45 Sodium 145 Potassium 3.7 Chloride 107 Carbon Dioxide 30 H BUN 14 Creatinine 0.82 Glucose 174 H Calcium 8.8 - Attending Attestation I examined this patient and my medical decision-making was reviewed with the Resident Physician on 06/17/16. I agree with the documented findings, disposition and treatment plan as described except to the extent set forth below. Ms. Mcgraw is currently admitted for pneumonia presumed gram negative and related to healthcare associated as well as PEG tube issues and anemia. She remains moderate to high risk due to potential worsening of infection and respiratory issues. Ms. Mcgraw is alert and denies new issues. She has developed diarrhea that has been sent for c diff. No abd pain. No dyspnea. No fever. She is tolerating tube feed since change yesterday Exam Alert. Comfortable Heart reg Lungs diminished Abd soft I/P 1. PNA - most likely gram negative - on IV abx 2. Diarrhea - C diff sent 3. Recent CVA with dysphagia and dysarthria 4. HTN Further diagnoses ad plan as above.
[2016-06-17] MEDS ORDERED: *HR* Dextrose 50 % in Water (Syg) 50 ML SYRINGE IVP PRN (12:34)
[2016-06-17] MEDS ORDERED: D5% in Water 1,000 ML IV PRN (12:34)
[2016-06-17] MEDS ORDERED: Dextrose Gel 15 GM PO PRN ×2 (12:34)
[2016-06-17] MEDS ORDERED: Vancomycin (wt based) 1,000 MG VIAL IV SCH (13:00)
[2016-06-17] MEDS ORDERED: Vancomycin 1,000 MG in D5% in Water 250 ML IVPB SCH (14:00)
[2016-06-17] MEDS: Potassium Chloride Elixir 20 MEQ/15 ML UDC GTUBE SCH (14:52)
[2016-06-17 16:06] LABS: Hematocrit 25.6 % (35.3-44.9); Hemoglobin 7.8 g/dL (11.5-15.4)
[2016-06-17] MEDS: traZODone 50 MG TABLET GTUBE SCH (20:53)
[2016-06-18] MEDS: Insulin LISPRO 300 UNITS/3 ML VIAL SQ SCH ×3 (00:10→13:18)
[2016-06-18] MEDS: Ipratropium/Albuterol Neb 3 ML IH SCH ×2 (04:02→10:48)
[2016-06-18 04:10] LABS: Basophils % 0.2 %; Eosinophils # 0.1 K/mcL (0.0-0.6); Eosinophils % 2.4 %; Hematocrit 26.2 % (35.3-44.9); Hemoglobin 7.9 g/dL (11.5-15.4); Immature Granulocytes % 0.5 % (0-4); Lymphocytes # 0.9 K/mcL (0.6-4.6); Lymphocytes % 15.2 %; Mean Corpuscular HGB Conc 30.2 g/dL (31.6-35.5); Mean Corpuscular Volume 99.6 fL (83.0-100.0); Mean Platelet Volume 10.2 fL (9.4-12.4); Monocytes # 0.3 K/mcL (0.0-1.3); Monocytes % 4.6 %; Neutrophils # 4.6 K/mcL (1.6-8.9); Platelet Count 192 K/mcL (140-400); Red Blood Count 2.63 M/mcL (3.82-4.97); Red Cell Distribution Width 15.5 % (11.5-14.5); Segmented Neutrophils % 77.1 %
[2016-06-18 04:11] LABS: BUN/Creatinine Ratio 17 (6-26); Blood Urea Nitrogen 14 mg/dL (7-20); Calcium 8.8 mg/dL (8.6-10.8); Carbon Dioxide 30 mEq/L (19-29); Chloride 107 mEq/L (98-109); Glucose 174 mg/dL (70-99); Osmolality,Calculated 305 (280-300); Potassium 3.7 mEq/L (3.5-4.5); Sodium 145 mEq/L (136-145); eGFR For African Americans > 60 (> 60); eGFR For Non-African Americans > 60 (> 60)
[2016-06-18] MEDS: Piperacillin/Tazobactam 3.375 GM in D5% in Water (Mini-Bag+) 100 ML IVPB SCH (06:12)
[2016-06-18] MEDS: *HR* Heparin 5,000 UNIT/ML VIAL SQ SCH (06:13)
[2016-06-18] MEDS: Docusate Oral Soln 100 MG/10 ML UDC GTUBE SCH (09:50)
--- NOTE | 2016-06-18 09:55 | Internal Med Progress Note ---
Date of Encounter: 06/18/16 Time of Encounter: 09:00 - Assessment and plan (1) PEG (percutaneous endoscopic gastrostomy) status Current Visit: Yes Status: Acute (2) DM type 2 (diabetes mellitus, type 2) Current Visit: Yes Status: Chronic Qualifiers: Qualified Code(s): E11.8 - Type 2 diabetes mellitus with unspecified complications (3) Pneumonia Current Visit: Yes Status: Acute Qualifiers: Qualified Code(s): J18.9 - Pneumonia, unspecified organism (4) Acute kidney injury superimposed on CKD Current Visit: Yes Status: Acute - Subjective Interval history: Patient states that she is doing well and back to baseline. Has no complaints or concerns. Denies CP, SOB, abdominal pain. Would like to go home. - Constitutional Vitals: Temp Pulse Resp BP Pulse Ox 98.4 F 70 16 143/60 97 06/18/16 07:02 06/18/16 07:02 06/18/16 07:02 06/18/16 07:02 06/18/16 07:02 General appearance: Present: cachectic, cooperative, A&O X 1, disheveled, A&O X 3, underweight - Respiratory Respiratory exam: Present: CTAB - Cardiovascular Cardiovascular exam: Present: RRR, +S1, +S2. Absent: diastolic murmur, gallop, rubs, systolic murmur Internal Medicine: Result - Labs CBC & Chem 7: 06/18/16 03:45 06/18/16 03:45 Labs: Short CBC 06/17/16 06/18/16 Range/Units 15:59 03:45 WBC 5.9 (4.3-11.1) K/mcL Hgb 7.8 L 7.9 L (11.5-15.4) g/dL Hct 25.6 L 26.2 L (35.3-44.9) % Plt Count 192 (140-400) K/mcL Neutrophils # 4.6 (1.6-8.9) K/mcL BMP 06/18/16 03:45 Sodium 145 Potassium 3.7 Chloride 107 Carbon Dioxide 30 H BUN 14 Creatinine 0.82 Glucose 174 H Calcium 8.8 - VTE Documentation of Mechanical Device: Intermittent pneumatic compression device Consult Discharge Plan - Plan Referrals: Karina Abrams, [employer]RO[employer] ACCOUNTING MANAGER [Primary Care Provider] -
[2016-06-18] MEDS: Vitamin B Complex/Vit C/Vit E 1 EACH TABLET GTUBE SCH (10:00)
[2016-06-18] MEDS: Insulin DETEMIR 100 UNIT/ML X5UNITS SQ SCH (10:00)
[2016-06-18] MEDS: Thiamine (B-1) 100 MG TABLET GTUBE SCH (10:00)
[2016-06-18] MEDS: Potassium Chloride Elixir 20 MEQ/15 ML UDC GTUBE SCH (10:01)
[2016-06-18] MEDS: Folic Acid 1 MG TABLET GTUBE SCH (10:01)
[2016-06-18] MEDS: Pantoprazole 40 MG VIAL IVP SCH (10:01)
[2016-06-18] MEDS: Gabapentin 300 MG CAPSULE GTUBE SCH (10:01)
[2016-06-18] MEDS: traMADol 50 MG TABLET GTUBE SCH (10:01)
[2016-06-18] MEDS: Artificial Tears SOLN 15 ML BOTTLE BOTH EYES SCH (10:02)
[2016-06-18] MEDS: tiZANidine 4 MG TABLET GTUBE SCH (10:02)
[2016-06-18] MEDS: Nystatin POWDER 30 GM BOTTLE TP SCH ×2 (10:02→16:27)
[2016-06-18] MEDS: Clotrimazole/Betameth Dip CRM 45 APPL/45 GM TUBE TP SCH (10:02)
[2016-06-18] MEDS: Nystatin SUSP 5 ML UD.LIQ PO SCH ×2 (10:02→13:18)
[2016-06-18] MEDS: metroNIDAZOLE 500 MG TABLET GTUBE SCH ×2 (10:30→16:27)
--- NOTE | 2016-06-18 13:45 | Discharge Summary ---
<RenataSathish Juan J - Last Filed: 06/18/16 17:24> Date of Encounter: 06/18/16 Time of Encounter: 10:00 - Discharge Diagnosis (1) PEG (percutaneous endoscopic gastrostomy) status Priority: Primary Status: Acute Comments: -Seen, evaluated and treated by the GI Physician -EGD completed. PEG tube secure. -May use for medication and nutrition -Computer error. Unable to add another diagnosis so will add it here. C Diff -Stool culture positive. -First time patient been diagnosed with C diff -Will discharge abx and be discharged to skilled facility (2) DM type 2 (diabetes mellitus, type 2) Priority: Primary Status: Chronic Comments: - - Discharge Medications Prescriptions: Atorvastatin [Lipitor] 20 mg GTUBE HS #30 tablet Docusate [Colace] 100 mg GTUBE BID #60 udc MetroNIDAZOLE [Flagyl] 500 mg GTUBE TID #42 tablet Nystatin POWDER [Nystop] 1 appl TP TID PRN #1 bottle PRN Reason: rash Home Medications: Albuterol Sulfate [Ventolin Hfa] 1 puff IH Q6H 01/26/16 [History] Ergocalciferol (VITAMIN D2) [Vitamin D2] 50,000 unit PO QWEEK #0 01/26/16 [ History] Gabapentin 250 mg GTUBE BID 01/26/16 [History] Insulin Glargine,Hum.rec.anlog [Lantus Solostar] 10 unit SQ DAILY 01/26/16 [ History] Labetalol HCl 200 mg GTUBE BID 01/26/16 [History] Losartan Potassium [Cozaar] 50 mg GTUBE DAILY 01/26/16 [History] Nortriptyline HCl 10 mg GTUBE HS 01/26/16 [History] Ondansetron Oral Soln [Zofran Oral Soln] 4 mg GTUBE TID 01/26/16 [History] Polyethylene Glycol 3350 [MiraLAX] 17 gm GTUBE DAILY 01/26/16 [History] Potassium Chloride Elixir [Potassium Chloride] 10 meq GTUBE DAILY 01/26/16 [ History] Furosemide [Lasix] 20 mg PO Q48H 365 Days 01/29/16 [Rx] Albuterol Sulfate [Ventolin Hfa] 18 gm IH Q6H PRN 06/12/16 [History] Mv-Mn/FA/Coq10/Lycopene/Lutein [Theragran-M Premier 50+ Caplet] 5 ml GTUBE QAM 06/12/16 [History] Atorvastatin [Lipitor] 20 mg GTUBE HS #30 tablet 06/18/16 [Rx] Clotrimazole/Betameth Dip CRM [Lotrisone CRM] 1 appl TP BID tube 06/18/16 [Rx] Docusate [Colace] 100 mg GTUBE BID #60 udc 06/18/16 [Rx] Folic Acid 1 mg GTUBE DAILY tablet 06/18/16 [Rx] MetroNIDAZOLE [Flagyl] 500 mg GTUBE TID #42 tablet 06/18/16 [Rx] Nystatin POWDER [Nystop] 1 appl TP TID PRN #1 bottle 06/18/16 [Rx] Allergies/Adverse Reactions: Allergies No Known Allergies Allergy (Verified 05/21/16 23:37) Date of admission: 06/12/16 21:34 Primary care physician: Karina Abrams CNP Consults: 06/12/16 21:10 Consult to Occupational Therapy [CONS] Routine Comment: Evaluate, develop and implement POC Consult to Physical Therapy [CONS] Routine Comment: Evaluate, develop and implement POC 06/12/16 22:28 Consult to Nurse Navigator [CONS] Routine Comment: 06/12/16 22:33 Consult to Nutrition [CONS] Routine Comment: Consulting Provider: NUTRITION Reason for Dietary Consult: TF Start and Manage Supplemental Nutrition 06/13/16 13:02 Consult to Interventional Radiology [CONS] Routine Consulting Provider: Radiology Interventional Cols Reason for Consult: RIght sided large pleural effusion/ ? parapneumonic Call Completed: No 06/14/16 11:55 Consult to Cardiology [CONS] Routine Comment: Consulting Provider: Cardiology [place] Reason for Consult: Elevated troponin Call Completed: Yes 06/14/16 15:06 Consult to Jet Wiper [CONS] Routine Reason for SW Consult: Placement back in ecf 06/15/16 22:01 Consult to Gastroenterology [CONS] Routine Consulting Provider: Gastroenterology [place] Reason for Consult: leaking PEG tube Call Completed: No Discharging clinician: Sathish Yanez Anticipated date of discharge: 06/18/16 - Patient Status Disposition: Transfer SNF Condition: Good Overall status at discharge: patient is back to baseline - Discharge Instructions Instructions: Metronidazole (By mouth), Nystatin (On the skin), Laxative, Stool Softeners (By mouth), Atorvastatin (By mouth), Diabetes Mellitus Type 2 in Adults (DC), Sepsis (DC), Hyperosmolar Hyperglycemic State (DC), Hyperosmolar Hyperglycemic State (GEN), Chronic Hypertension (DC), Pneumonia (DC ), How to Use and Care for Your PEG Tube, Complaint Manager (GEN) Follow Up With: Karina Abrams, LIVE IN HOUSEKEEPER [Primary Care Provider] - - Diet and Activity Activity: increase activity as tolerated Diet: advance to your usual diet (Nothing food by mouth. G tube only. ) Interval History: Patient feels like she is back to baseline. Smile and is very excited to know she is able to go home. She denies any pain. No complaints or concerns at this time. Informed patient that she does have C. difficile, educated her on the condition, it is treatable with metronidazole that we will will be started today. Patient denies any previous diagnosis of C. difficile. Hospital course: Ms. Mcgraw is a 75 year old female with a complex hospital course. She was admitted for altered mental status, possible DKA, pneumonia. 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 Patient has full mental capacity. While under my care, patient was being treated for pneumonia. She had a thorocentesis in which 1200 L was drawn out. No complications. Denies chest pain or shortness of breath. Denies fever, productive cough. Drainage was noted from the gastric tube. GI consult and endoscopy for further investigation. Found that the patient had some erythema inside the stomach. PEG tube secured, no longer draining. Patient has been on IV antibiotics for greater than 5 days-vancomycin and Zosyn. Patient had some recent episodes of diarrhea. C. difficile culture positive. On 06/18/16 is day 1 of metronidazole 500 mg 3 times a day. Patient has not had C. difficile in the past. Patient was noted to have anemia. She denies any bloody stools or previous history of transfusions. GI consulted. EGD done. No acute bleed noted. Yesterday patient underwent one pack red blood cell transfusion. Since that time, patient's hemoglobin and hematocrit has been stable. - Time Spent with Patient Total time spent providing and/or coordinating discharge services: Greater than 30 minutes - Constitutional Vitals: Temp Pulse Resp BP Pulse Ox 99 F 79 16 130/58 98 06/18/16 11:59 06/18/16 11:56 06/18/16 11:56 06/18/16 11:56 06/18/16 11:56 General appearance: Present: cachectic, cooperative, A&O X 1, disheveled, A&O X 3, underweight - Head Head exam: Present: atraumatic, normal inspection - Respiratory Respiratory exam: Present: CTAB, rales (RLQ) Additional comments: R sided bandage were her thoracentesis done. No erythema, abscess, skin infection noted - Cardiovascular Cardiovascular exam: Present: RRR, +S1, +S2. Absent: diastolic murmur, gallop, rubs, systolic murmur - GI/Abdominal GI/Abdominal exam: Present: normal bowel sounds, soft, no peritoneal signs. Absent: distended, tenderness - Neurological Exam Neurological exam: Present: alert Additional comments: Stroke around one year ago. Speech effected. - Psychiatric Psychiatric exam: Present: normal affect, normal mood - VTE Documentation of Mechanical Device: Intermittent pneumatic compression device <Shane Alston - Last Filed: 06/18/16 17:52> - Discharge Diagnosis (1) Acute on chronic respiratory failure with hypoxia and hypercapnia Priority: Primary Status: Acute Comments: resolved (2) PEG tube malfunction Priority: Secondary Status: Acute (3) Hypertension Priority: Secondary Status: Chronic Qualifiers: Qualified Code(s): I10 - Essential (primary) hypertension (4) Pleural effusion Priority: Secondary Status: Chronic (5) Anemia Priority: Secondary Status: Acute Comments: Most likely anemia of chronic disease Qualifiers: Qualified Code(s): D64.9 - Anemia, unspecified (6) Irritation around percutaneous endoscopic gastrostomy (PEG) tube site Priority: Secondary Status: Acute (7) Pneumonia Priority: Primary Status: Acute Comments: Most likely gram negative pneumonia Qualifiers: Qualified Code(s): J18.9 - Pneumonia, unspecified organism Date of admission: 06/12/16 21:34 Primary care physician: Karina Abrams CNP Consults: 06/12/16 21:10 Consult to Occupational Therapy [CONS] Routine Comment: Evaluate, develop and implement POC Consult to Physical Therapy [CONS] Routine Comment: Evaluate, develop and implement POC 06/12/16 22:28 Consult to Nurse Navigator [CONS] Routine Comment: 06/12/16 22:33 Consult to Nutrition [CONS] Routine Comment: Consulting Provider: NUTRITION Reason for Dietary Consult: TF Start and Manage Supplemental Nutrition 06/13/16 13:02 Consult to Interventional Radiology [CONS] Routine Consulting Provider: Radiology Interventional Cols Reason for Consult: RIght sided large pleural effusion/ ? parapneumonic Call Completed: No 06/14/16 11:55 Consult to Cardiology [CONS] Routine Comment: Consulting Provider: Cardiology [place] Reason for Consult: Elevated troponin Call Completed: Yes 06/14/16 15:06 Consult to Jet Wiper [CONS] Routine Reason for SW Consult: Placement back in ecf 06/15/16 22:01 Consult to Gastroenterology [CONS] Routine Consulting Provider: Gastroenterology [place] Reason for Consult: leaking PEG tube Call Completed: No Hospital course: Ms. Mcgraw is a 75 year old female - Time Spent with Patient Total time spent providing and/or coordinating discharge services: 36min - Constitutional Vitals: Temp Pulse Resp BP Pulse Ox 98.1 F 74 16 106/52 96 06/18/16 16:03 06/18/16 16:03 06/18/16 16:03 06/18/16 16:03 06/18/16 16:03 - Attending Attestation I examined this patient and my medical decision-making was reviewed with the Resident Physician on 06/18/16. I agree with the documented findings, disposition and treatment plan as described except to the extent set forth below. Ms. Mcgraw is doing better today. Her C diff has returned positive. No abd pain. Tolerating tube feeds - no leaking. Exam Alert. Comfortable heart reg no wheeze Abd soft Plan D/C to SNF today. Pt BP is good, no fever. She is medically stable for discharge. PO Flagyl for C diff
[2016-06-18 15:45] LABS: Hematocrit 25.9 % (35.3-44.9); Hemoglobin 7.9 g/dL (11.5-15.4)
[2016-06-18 16:06] VITALS: BP 106/52
--- NOTE | 2016-06-18 17:22 | Physician Discharge Referral ---
ExtendedCare Referral Info Provider in Charge: Shane Alston DO Provider in Charge after Transfer: Other (Physician at facility or PCP) Institutional Level of Care: Skilled Expected Duration of Placement: Less than 90days Prognosis: Fair Aware of Diagnosis: Patient Aware of Prognosis: Patient - Transfer Medications Prescriptions: Atorvastatin [Lipitor] 20 mg GTUBE HS #30 tablet Docusate [Colace] 100 mg GTUBE BID #60 udc MetroNIDAZOLE [Flagyl] 500 mg GTUBE TID #42 tablet Nystatin POWDER [Nystop] 1 appl TP TID PRN #1 bottle PRN Reason: rash Home Medications: Albuterol Sulfate [Ventolin Hfa] 1 puff IH Q6H 01/26/16 [History] Ergocalciferol (VITAMIN D2) [Vitamin D2] 50,000 unit PO QWEEK #0 01/26/16 [ History] Gabapentin 250 mg GTUBE BID 01/26/16 [History] Insulin Glargine,Hum.rec.anlog [Lantus Solostar] 10 unit SQ DAILY 01/26/16 [ History] Labetalol HCl 200 mg GTUBE BID 01/26/16 [History] Losartan Potassium [Cozaar] 50 mg GTUBE DAILY 01/26/16 [History] Nortriptyline HCl 10 mg GTUBE HS 01/26/16 [History] Ondansetron Oral Soln [Zofran Oral Soln] 4 mg GTUBE TID 01/26/16 [History] Polyethylene Glycol 3350 [MiraLAX] 17 gm GTUBE DAILY 01/26/16 [History] Potassium Chloride Elixir [Potassium Chloride] 10 meq GTUBE DAILY 01/26/16 [ History] Furosemide [Lasix] 20 mg PO Q48H 365 Days 01/29/16 [Rx] Albuterol Sulfate [Ventolin Hfa] 18 gm IH Q6H PRN 06/12/16 [History] Mv-Mn/FA/Coq10/Lycopene/Lutein [Theragran-M Premier 50+ Caplet] 5 ml GTUBE QAM 06/12/16 [History] Atorvastatin [Lipitor] 20 mg GTUBE HS #30 tablet 06/18/16 [Rx] Clotrimazole/Betameth Dip CRM [Lotrisone CRM] 1 appl TP BID tube 06/18/16 [Rx] Docusate [Colace] 100 mg GTUBE BID #60 udc 06/18/16 [Rx] Folic Acid 1 mg GTUBE DAILY tablet 06/18/16 [Rx] MetroNIDAZOLE [Flagyl] 500 mg GTUBE TID #42 tablet 06/18/16 [Rx] Nystatin POWDER [Nystop] 1 appl TP TID PRN #1 bottle 06/18/16 [Rx] Allergies/Adverse Reactions: Allergies No Known Allergies Allergy (Verified 05/21/16 23:37) - Respiratory Orders Other (Keep oxygen saturation greater than 90%) Smoking Cessation: Smoking cessation has been advised. For more information, call the [place] Tobacco Quit Line at 6-503-JJHJ-NOW. - Lab Orders Lab Orders: 2 Step Mantoux Test per State regulation - Ancillary Orders May use pressure relief devices daily prn, May consult with Dentist, Supervisor [employer], Skidder Driver PRN - Advance Directives Code Status: DNR-Arrest - Mobility Orders Bedrest (Activity as tolerated for her.) - Rehabiliation Orders Rehab Potential: Fair Rehab Orders: Evaluation for Physical Therapy, Evaluation for Occupational Therapy, Evaluation for Speech Therapy - Treatments Skin tear care topically daily PRN per policy, May check for fecal impaction rectally daily PRN, Fleet enema rectally every other day PRN cleansing purposes - Diet Orders Tube Feedings (type/amount/rate): Nephro continuous at 40ml/hr . Pt is NPO. Flush Tube (type/amount/frequency): 200ml free water q6h CERTIFICATION: I certify that the transfer of the above named patient to an Extended Care Facility is necessary for the continuing treatment of the diagnosis listed. The above information is true and accurate reflection of patient's current condition. Confidential - Redisclosure prohibited without a patient's written consent.
[2016-06-18] MEDS ORDERED: Aminoglycoside Consult 1 EACH MC ONE (18:53)
== END 2016-06-18 18:54 | DRG 871 ==
LOC: 2NNU → SUATTDRO 21:34 → 2NENU 06-15 14:25
PROVIDERS: ADMIT Internal Medicine; ATTEND Internal Medicine